=== PATIENT | female | born 1965 | race Caucasian/White ===

== ENCOUNTER 2020-05-13 17:56 | Emergency (ER) | payer MEDICAID ==
[~2020-05-13] VITALS: Ht 160 cm; Wt 98.9 kg
[~2020-05-13 17:56] MED LIST: ADV50250 IH; ALB0.5UD IH; ALBU8HFA PO; ASPI-1264 PO; CEPH-571 PO; DICL100G15 TOP; FAMO-1 PO; GUAI120015 PO; GUAI600T PO; HYDR-4383 PO; ONDA8TAB9 PO; Oxygen; SERT-153 PO; SIMV-42 PO; SPIIN INH; TIOT18CA7 IH
--- NOTE | 2020-05-13 19:40 | NUR ---
Pt reports calf discomfort , but when assessing her left lower extremity patient point to her left ankle and states that is where i am worried about a dvt . site is slightly swollen no rdeness . pt reports a hx of gout ,
--- NOTE | 2020-05-13 19:44 | NUR ---
x ray at bedside
[2020-05-13 20:10] LABS: BASOPHILS # (AUTO) 0.1 X10'3 (0-0.2); BASOPHILS % (AUTO) 0.9 % (0-1); EOSINOPHILS # (AUTO) 0.3 X10'3 (0-0.9); EOSINOPHILS % (AUTO) 3.3 % (0-6); HEMOGLOBIN 13.5 g/dl (12.0-16.0); LYMPHOCYTES # (AUTO) 2.6 X10'3 (1.1-4.8); MEAN CORPUSCULAR HEMOGLOBIN 30.8 PG (27.0-31.0); MEAN CORPUSCULAR HGB CONC 33.7 g/dL (33.0-36.5); MEAN CORPUSCULAR VOLUME 91.4 FL (78-98); MEAN PLATELET VOLUME 8.5 FL (7.4-10.4); MONOCYTES # (AUTO) 0.5 X10'3 (0-0.9); MONOCYTES % (AUTO) 6.3 % (2-12); NEUTROPHILS # (AUTO) 4.6 X10'3 (1.8-7.7); NEUTROPHILS % (AUTO) 57.5 % (42-75); PLATELET COUNT 221 X10'3 (140-440); RED BLOOD COUNT 4.38 X10'6 (4.20-5.60)
[2020-05-13 20:32] LABS: ALANINE AMINOTRANSFERASE 26 U/L (12-78); ALBUMIN 3.5 G/DL (3.4-5.0); ALBUMIN/GLOBULIN RATIO 0.9 (1.1-1.5); ALKALINE PHOSPHATASE 89 IU/L (46-116); ANION GAP 3 (8-16); ASPARTATE AMINO TRANSFERASE 13 U/L (10-37); BILIRUBIN,TOTAL 0.3 MG/DL (0.1-1.0); BLOOD UREA NITROGEN 17 MG/DL (7-18); BUN/CREATININE RATIO 23.6 (6.6-38.0); CALCIUM 10.2 MG/DL (8.5-10.1); CHLORIDE 105 MMOL/L (99-107); CREATININE 0.72 MG/DL (0.40-0.90); GLUCOSE 98 MG/DL (70-104); POTASSIUM 4.4 MMOL/L (3.5-5.1); SODIUM 138 MMOL/L (135-145); TOTAL CARBON DIOXIDE 30.1 MMOL/L (24-32); TOTAL PROTEIN 7.5 G/DL (6.4-8.2); eGFR 84 ML/MIN
[2020-05-13 21:42] VITALS: BP 133/80
--- NOTE | 2020-05-13 22:20 | NUR ---
VASC AT BEDSIDE ASSESSING PATIENTS LLE
== END 2020-05-13 23:12 | disposition home or self-care (01) ==
LOC: ER 17:56
DX: M54.16 Radiculopathy, lumbar region (principal); M79.662 Pain in left lower leg; E78.00 Pure hypercholesterolemia, unspecified; J44.9 Chronic obstructive pulmonary disease, unspecified; Z98.890 Other specified postprocedural states; Z88.0 Allergy status to penicillin; Z88.2 Allergy status to sulfonamides; Z88.1 Allergy status to other antibiotic agents; Z88.5 Allergy status to narcotic agent; Z79.82 Long term (current) use of aspirin; Z79.899 Other long term (current) drug therapy
CPT/HCPCS: 36415; 71045; 80053; 83880; 84484; 85025; 93005; 93971; 99285

== ENCOUNTER 2021-03-25 21:23 | Emergency (ER) | payer MEDICAID ==
[~2021-03-25] VITALS: Ht 160 cm; Wt 69.1 kg
[2021-03-25] MEDS ORDERED: [UNRECOGNIZED DRUG - OTHER] IV ONE ×3 (23:15)
[2021-03-25] MEDS ORDERED: famotidine/PF 10 mg/ml inj IV PRN (23:15)
[2021-03-25] MEDS ORDERED: NS IV ONE ×3 (23:15)
[2021-03-25] MEDS ORDERED: albuterol 2.5 MG/3 ML nebule NEB PRN (23:15)
[2021-03-25] MEDS ORDERED: acetaminophen 325mg tablet PO PRN (23:15)
[2021-03-25] MEDS ORDERED: hydrocortisone sod succ/PF 100mg/2ml inj. IV PRN (23:15)
[2021-03-25] MEDS ORDERED: epiNEPHrine 1 mg/ml inj IM PRN (23:15)
[2021-03-25] MEDS ORDERED: diphenhydrAMINE 50 mg/ml inj IV PRN (23:15)
[2021-03-26 00:50] VITALS: BP 145/75
== END 2021-03-26 00:51 | disposition home or self-care (01) ==
LOC: ER 21:24
DX: U07.1 COVID-19 (principal); R06.02 Shortness of breath; R05 Cough; R53.83 Other fatigue; E78.00 Pure hypercholesterolemia, unspecified; J44.9 Chronic obstructive pulmonary disease, unspecified; Z98.890 Other specified postprocedural states; Z88.2 Allergy status to sulfonamides; Z88.0 Allergy status to penicillin; Z88.1 Allergy status to other antibiotic agents; Z88.5 Allergy status to narcotic agent; Z79.82 Long term (current) use of aspirin; Z79.2 Long term (current) use of antibiotics; Z79.899 Other long term (current) drug therapy
CPT/HCPCS: 71045; 87635; 99284; C9803; M0243; Q0243

== ENCOUNTER 2021-05-18 16:27 | Emergency (ER) | payer MEDICAID ==
[~2021-05-18] VITALS: Ht 160 cm; Wt 64.5 kg
[2021-05-18 17:26] LABS: BASOPHILS # (AUTO) 0.1 X10'3 (0-0.2); BASOPHILS % (AUTO) 1.4 % (0-1); EOSINOPHILS # (AUTO) 0.3 X10'3 (0-0.9); EOSINOPHILS % (AUTO) 4.5 % (0-6); HEMATOCRIT 43.4 % (35.0-45.0); HEMOGLOBIN 14.6 g/dl (12.0-16.0); LYMPHOCYTES # (AUTO) 2.2 X10'3 (1.1-4.8); LYMPHOCYTES % (AUTO) 32.9 % (21-51); MEAN CORPUSCULAR HEMOGLOBIN 30.7 PG (27.0-31.0); MEAN CORPUSCULAR HGB CONC 33.6 g/dL (33.0-36.5); MEAN CORPUSCULAR VOLUME 91.5 FL (78-98); MEAN PLATELET VOLUME 8.5 FL (7.4-10.4); MONOCYTES # (AUTO) 0.5 X10'3 (0-0.9); MONOCYTES % (AUTO) 7.1 % (2-12); NEUTROPHILS # (AUTO) 3.6 X10'3 (1.8-7.7); NEUTROPHILS % (AUTO) 54.1 % (42-75); PLATELET COUNT 251 X10'3 (140-440); RED BLOOD COUNT 4.74 X10'6 (4.20-5.60); RED CELL DISTRIBUTION WIDTH 14.2 % (11.5-14.5); WHITE BLOOD COUNT 6.6 X10'3 (4.5-11.0)
[2021-05-18 17:37] LABS: ALANINE AMINOTRANSFERASE 6 U/L (12-78); ALBUMIN 3.4 G/DL (3.4-5.0); ALBUMIN/GLOBULIN RATIO 0.8 (1.1-1.5); ALKALINE PHOSPHATASE 98 IU/L (46-116); ANION GAP 9 (8-16); ASPARTATE AMINO TRANSFERASE 8 U/L (10-37); BILIRUBIN,TOTAL 0.3 MG/DL (0.1-1.0); BLOOD UREA NITROGEN 15 MG/DL (7-18); BUN/CREATININE RATIO 17.4 (6.6-38.0); CALCIUM 10.4 MG/DL (8.5-10.1); CHLORIDE 108 MMOL/L (99-107); CREATININE 0.86 MG/DL (0.40-0.90); GLUCOSE 95 MG/DL (70-104); POTASSIUM 4.1 MMOL/L (3.5-5.1); SODIUM 144 MMOL/L (135-145); TOTAL CARBON DIOXIDE 27.3 MMOL/L (24-32); TOTAL PROTEIN 7.7 G/DL (6.4-8.2); eGFR 68 ML/MIN
[2021-05-18] MEDS ORDERED: DOXY100C43 PO (21:09)
[2021-05-18] MEDS ORDERED: ALBU18HF2 INH (21:09)
[2021-05-18] MEDS ORDERED: PRED20TA PO (21:09)
[2021-05-18 21:27] VITALS: BP 115/86
== END 2021-05-18 21:30 | disposition home or self-care (01) ==
LOC: ER 16:28
DX: J41.0 Simple chronic bronchitis (principal); R07.89 Other chest pain; R06.02 Shortness of breath; R07.81 Pleurodynia; E78.00 Pure hypercholesterolemia, unspecified; F17.200 Nicotine dependence, unspecified, uncomplicated; Z88.2 Allergy status to sulfonamides; Z88.1 Allergy status to other antibiotic agents; Z88.5 Allergy status to narcotic agent; Z79.82 Long term (current) use of aspirin; Z79.2 Long term (current) use of antibiotics; Z79.899 Other long term (current) drug therapy
CPT/HCPCS: 36415; 71045; 80053; 85025; 99284; 99285

== ENCOUNTER 2021-07-07 18:21 | Emergency (ER) | payer MEDICAID ==
[~2021-07-07] VITALS: Ht 160 cm; Wt 64.5 kg
[~2021-07-07 18:21] MED LIST changes: +ALBU18HF2 INH
[2021-07-07 19:05] VITALS: BP 165/81
== END 2021-07-07 23:38 | disposition left against medical advice (07) ==
LOC: ER 18:22
DX: S61.011A Laceration without foreign body of right thumb without damage to nail, initial encounter (principal); Z53.21 Procedure and treatment not carried out due to patient leaving prior to being seen by health care provider; X58.XXXA Exposure to other specified factors, initial encounter; Y93.9 Activity, unspecified; Y92.9 Unspecified place or not applicable; Y99.9 Unspecified external cause status

== ENCOUNTER 2021-07-17 19:20 | Emergency (ER) | payer MEDICAID ==
[~2021-07-17] VITALS: Ht 160 cm; Wt 64.5 kg
[2021-07-17] MEDS ORDERED: acetaminophen 325mg tablet PO ONE (21:40)
[2021-07-17 22:25] VITALS: BP 116/80
== END 2021-07-17 22:27 | disposition home or self-care (01) ==
LOC: ER 19:21
DX: S80.212A Abrasion, left knee, initial encounter (principal); M25.562 Pain in left knee; E78.00 Pure hypercholesterolemia, unspecified; J44.9 Chronic obstructive pulmonary disease, unspecified; Z98.890 Other specified postprocedural states; Z88.0 Allergy status to penicillin; Z88.2 Allergy status to sulfonamides; Z88.1 Allergy status to other antibiotic agents; Z88.5 Allergy status to narcotic agent; Z79.82 Long term (current) use of aspirin; Z79.2 Long term (current) use of antibiotics; Z79.899 Other long term (current) drug therapy; W19.XXXA Unspecified fall, initial encounter; Y93.89 Activity, other specified; Y92.89 Other specified places as the place of occurrence of the external cause; Y99.8 Other external cause status
CPT/HCPCS: 29505; 73564; 99283

== ENCOUNTER 2022-02-17 02:11 | Emergency (ER) | payer MEDICAID ==
[~2022-02-17] VITALS: Ht 160 cm; Wt 69.0 kg
[2022-02-17 02:29] VITALS: BP 133/68
== END 2022-02-17 05:55 | disposition left against medical advice (07) ==
LOC: ER 02:12
DX: R10.9 Unspecified abdominal pain (principal); Z53.21 Procedure and treatment not carried out due to patient leaving prior to being seen by health care provider

== ENCOUNTER 2022-07-13 13:49 | Emergency (ER) | payer MEDICAID ==
[~2022-07-13] VITALS: Ht 160 cm; Wt 66.4 kg
[2022-07-13 14:40] VITALS: BP 125/80
[2022-07-13] MEDS ORDERED: ONDA4TAB12 PO (17:13)
[2022-07-13] MEDS ORDERED: HYDR-3965 PO (17:13)
== END 2022-07-13 17:33 | disposition home or self-care (01) ==
LOC: ER 13:49
DX: M25.572 Pain in left ankle and joints of left foot (principal); E78.00 Pure hypercholesterolemia, unspecified; J44.9 Chronic obstructive pulmonary disease, unspecified; Z98.890 Other specified postprocedural states; Z88.0 Allergy status to penicillin; Z88.2 Allergy status to sulfonamides; Z88.5 Allergy status to narcotic agent; Z88.8 Allergy status to other drugs, medicaments and biological substances; Z79.82 Long term (current) use of aspirin; Z79.2 Long term (current) use of antibiotics; Z79.899 Other long term (current) drug therapy
CPT/HCPCS: 73630; 99283; L4360

== ENCOUNTER 2022-08-22 07:18 | Day surgery (SDC) | payer MEDICAID ==
[2022-08-16 11:31] LABS: BASOPHILS # (AUTO) 0.1 X10'3 (0-0.2); BASOPHILS % (AUTO) 1.1 % (0-1); EOSINOPHILS # (AUTO) 0.2 X10'3 (0-0.9); EOSINOPHILS % (AUTO) 2.9 % (0-6); LYMPHOCYTES # (AUTO) 2.1 X10'3 (1.1-4.8); MEAN CORPUSCULAR HEMOGLOBIN 30.6 PG (27.0-31.0); MEAN CORPUSCULAR HGB CONC 33.6 g/dL (33.0-36.5); MEAN CORPUSCULAR VOLUME 91.1 FL (78-98); MEAN PLATELET VOLUME 8.1 FL (7.4-10.4); MONOCYTES # (AUTO) 0.4 X10'3 (0-0.9); MONOCYTES % (AUTO) 5.4 % (2-12); NEUTROPHILS # (AUTO) 3.8 X10'3 (1.8-7.7); NEUTROPHILS % (AUTO) 58.6 % (42-75); PRE OP HEMATOCRIT 43.3 % (35.0-45.0); PRE OP HEMOGLOBIN 14.5 g/dL (12.0-16.0); PRE OP PLATELET COUNT 242 X10'3 (140-440); RED BLOOD COUNT 4.75 X10'6 (4.20-5.60); RED CELL DISTRIBUTION WIDTH 13.7 % (11.5-14.5)
[2022-08-16 11:45] LABS: ALBUMIN 3.5 G/DL (3.4-5.0); ALBUMIN/GLOBULIN RATIO 0.9 (1.1-1.5); ALKALINE PHOSPHATASE 109 IU/L (46-116); BLOOD UREA NITROGEN 14 MG/DL (7-18); BUN/CREATININE RATIO 16.3 (6.6-38.0); CALCIUM 9.9 MG/DL (8.5-10.1); CHLORIDE 105 MMOL/L (99-107); CREATININE 0.86 MG/DL (0.40-0.90); PRE OP ALT 21 U/L (30-65); PRE OP ANION GAP 3 (8-16); PRE OP AST 19 U/L (10-37); PRE OP BILIRUB, TOTAL 0.4 MG/DL (0.0-1.0); PRE OP GLUCOSE 107 MG/DL (70-104); PRE OP POTASSIUM 4.8 MMOL/L (3.4-5.1); PRE OP SODIUM 138 MMOL/L (135-145); TOTAL CARBON DIOXIDE 29.9 MMOL/L (24-32); TOTAL PROTEIN 7.5 G/DL (6.4-8.2); eGFR 68 ML/MIN
[2022-08-22] VITALS (11 sets, daily range): BP systolic 82–110; BP diastolic 51–97
[~2022-08-22] VITALS: Ht 160 cm; Wt 66.5 kg
[~2022-08-22 07:18] MED LIST changes: -ADV50250 IH; -ALBU8HFA PO; -ASPI-1264 PO; +BUPIVAcaine/PF 5 mg/ml 10ml ONE; +BUSP15TA7 PO; -CEPH-571 PO; -DICL100G15 TOP; -FAMO-1 PO; -GUAI120015 PO; -GUAI600T PO; -HYDR-4383 PO; +OMEP20CA16 PO; -ONDA8TAB9 PO; -Oxygen; +PRAV20TA4 PO; -SERT-153 PO; -SIMV-42 PO; -SPIIN INH; -TIOT18CA7 IH; +clindamycin-Cleocin 900mg/D5W 50 ML IV ONE; +famotidine 20mg tablet PO ONE; +ringers solution, lacted 1,000 ML IV SCH
[2022-08-22] MEDS ORDERED: morphine 2 MG/ML inj. syringe IV PRN (07:50)
[2022-08-22] MEDS ORDERED: ondansetron/PF 4mg/2ml inj IV PRN (07:50)
[2022-08-22] MEDS ORDERED: labetalol 5mg/ml 20ml inj. IV PRN (07:50)
[2022-08-22] MEDS ORDERED: ringers solution, lacted 1,000 ML IV SCH (07:50)
[2022-08-22] MEDS ORDERED: meperidine/PF 25mg/ml syringe IV PRN (07:50)
[2022-08-22] MEDS ORDERED: fentaNYL/PF 50MCG/1 ML 2ML syringe ONE (09:29)
[2022-08-22] MEDS ORDERED: midazolam 1 mg/ML 2ml injection ONE (09:29)
[2022-08-22] MEDS ORDERED: LIDOcaine 0.5% (5mg/ml) 50ml vial ONE (09:30)
--- NOTE | 2022-08-22 09:52 | NUR ---
Received from OR via [facility], accompanied by Anesthesiologist DR MENENDEZ and report given by Anesthesiolgist. PT PRESNTS WITH PIV 2OG RIGHT AC, DRESSING ON LEFT THUMB WRIST CDI, VSS. Addendum: 08/22/22 at 1004 by Justine Holcomb RN, RN Amended: Links added.
--- NOTE | 2022-08-22 11:02 | NUR ---
ABLE TO SAFELY AMBULATE AND TRANSFER SELF. IV TAKEN OUT WITHOUT ANY COMPLICATIONS. ALL DISCHARGE INSTRUCTIONS COVERED WITH PATIENT AND ALL QUESTIONS ANSWERED. PATIENT TAKEN OUT VIA WHEELCHAIR TO PERSONAL VEHICLE WHERE FAMILY/FRIEND DROVE PATIENT HOME. Addendum: 08/22/22 at 1112 by Justine Holcomb RN, RN Amended: Links added.
== END 2022-08-22 11:02 | disposition home or self-care (01) ==
LOC: PAS 07:18
PROVIDERS: ATTEND Orthopaedic Surgery Hand Surgery
DX: M65.312 Trigger thumb, left thumb (principal); J44.9 Chronic obstructive pulmonary disease, unspecified; F17.210 Nicotine dependence, cigarettes, uncomplicated; F41.9 Anxiety disorder, unspecified; F32.9 Major depressive disorder, single episode, unspecified; K21.9 Gastro-esophageal reflux disease without esophagitis; E78.00 Pure hypercholesterolemia, unspecified; Z87.442 Personal history of urinary calculi; Z88.0 Allergy status to penicillin; Z88.2 Allergy status to sulfonamides; Z88.5 Allergy status to narcotic agent; Z88.1 Allergy status to other antibiotic agents; Z98.890 Other specified postprocedural states; Z79.899 Other long term (current) drug therapy; Z82.49 Family history of ischemic heart disease and other diseases of the circulatory system
CPT/HCPCS: 26055; 36415; 80053; 82948; 85025; 93005; J2250; J3010; J3490; J7030; J7120; Z7506; Z7512; A4215; A4615

== ENCOUNTER 2023-04-07 13:20 | Emergency (ER) | payer MEDICAID ==
[~2023-04-07] VITALS: Ht 170.2 cm; Wt 80.0 kg
[~2023-04-07 13:20] MED LIST changes: -BUPIVAcaine/PF 5 mg/ml 10ml ONE; -clindamycin-Cleocin 900mg/D5W 50 ML IV ONE; -famotidine 20mg tablet PO ONE; -ringers solution, lacted 1,000 ML IV SCH
[2023-04-07 13:24] VITALS: BP 100/74; PULSE 89; RESP 18; TEMP 98; O2SAT 95
[2023-04-07] MEDS ORDERED: normal saline 1000ML IV soln IVB ONE (16:00)
[2023-04-07] MEDS ORDERED: HYDR-3973 PO (16:39)
== END 2023-04-07 17:30 | disposition home or self-care (01) ==
LOC: ER 13:20
DX: S32.009A Unspecified fracture of unspecified lumbar vertebra, initial encounter for closed fracture (principal); E78.00 Pure hypercholesterolemia, unspecified; J44.9 Chronic obstructive pulmonary disease, unspecified; Z88.0 Allergy status to penicillin; Z88.2 Allergy status to sulfonamides; Z88.1 Allergy status to other antibiotic agents; Z88.5 Allergy status to narcotic agent; Z91.041 Radiographic dye allergy status; Z79.899 Other long term (current) drug therapy; V89.2XXA Person injured in unspecified motor-vehicle accident, traffic, initial encounter; Y93.89 Activity, other specified; Y92.89 Other specified places as the place of occurrence of the external cause; Y99.8 Other external cause status
CPT/HCPCS: 72100; 96360; 99284; J7030

== ENCOUNTER 2023-06-02 11:43 | Emergency (ER) | payer MEDICAID ==
[~2023-06-02] VITALS: Ht 160 cm; Wt 66.0 kg
[2023-06-02] MEDS ORDERED: normal saline 1000ML IV soln IVB ONE (12:20)
[2023-06-02] MEDS ORDERED: ondansetron/PF 4mg/2ml inj IV ONE (12:20)
[2023-06-02 12:24] LABS: BILIRUBIN,URINE NEGATIVE (Neg); COLOR,URINE YELLOW (Yellow); GLUCOSE, URINE NEGATIVE (Neg); KETONES,URINE NEGATIVE (Neg); LEUKOCYTE ESTERASE ,URINE SMALL (Neg); NITRITES, URINE POSITIVE (Neg); OCCULT BLOOD,URINE TRACE-INTACT (Neg); PROTEIN,URINE NEGATIVE (Neg)
[2023-06-02 12:31] LABS: URINE HCG NEGATIVE (NEG)
[2023-06-02 12:46] LABS: CLARITY,URINE CLOUDY (Clear); UA COLLECTION TYPE CLN CATCH MIDSTREAM
[2023-06-02 12:54] LABS: BACTERIA,URINE 4+ /HPF (Neg); MUCUS STRANDS FEW /LPF (Neg); SQUAMOUS EPITHELIAL CELL,UR FEW /LPF (FEW)
[2023-06-02 12:56] LABS: CAL OXALATE CRYSTALS 1+ /HPF (NEGATIVE)
[2023-06-02 13:10] LABS: BASOPHILS # (AUTO) 0.1 X10'3 (0-0.2); BASOPHILS % (AUTO) 0.9 % (0-1); EOSINOPHILS # (AUTO) 0.1 X10'3 (0-0.9); EOSINOPHILS % (AUTO) 2.1 % (0-6); HEMATOCRIT 44.4 % (35.0-45.0); HEMOGLOBIN 14.5 g/dl (12.0-16.0); LYMPHOCYTES # (AUTO) 2.3 X10'3 (1.1-4.8); LYMPHOCYTES % (AUTO) 39.6 % (21-51); MEAN CORPUSCULAR HEMOGLOBIN 29.5 PG (27.0-31.0); MEAN CORPUSCULAR HGB CONC 32.7 g/dL (33.0-36.5); MEAN CORPUSCULAR VOLUME 90.2 FL (78-98); MEAN PLATELET VOLUME 8.6 FL (7.4-10.4); MONOCYTES # (AUTO) 0.3 X10'3 (0-0.9); MONOCYTES % (AUTO) 5.8 % (2-12); NEUTROPHILS % (AUTO) 51.6 % (42-75); PLATELET COUNT 266 X10'3 (140-440); RED BLOOD COUNT 4.92 X10'6 (4.20-5.60); RED CELL DISTRIBUTION WIDTH 15.1 % (11.5-14.5); WHITE BLOOD COUNT 5.7 X10'3 (4.5-11.0)
[2023-06-02] MEDS ORDERED: ONDA4TAB12 PO (13:13)
[2023-06-02] MEDS ORDERED: CEPH-585 PO ×2 (13:13)
[2023-06-02] MEDS ORDERED: levoFLOXACIN 250mg tablet PO ONE (13:15)
[2023-06-02] MEDS ORDERED: LEVO-65 PO (13:20)
[2023-06-02 13:24] LABS: ALANINE AMINOTRANSFERASE 26 U/L (12-78); ALBUMIN 3.6 G/DL (3.4-5.0); ALBUMIN/GLOBULIN RATIO 0.9 (1.1-1.5); ALKALINE PHOSPHATASE 127 IU/L (46-116); ANION GAP 7 (8-16); ASPARTATE AMINO TRANSFERASE 16 U/L (10-37); BILIRUBIN,TOTAL 0.3 MG/DL (0.1-1.0); BLOOD UREA NITROGEN 14 MG/DL (7-18); CALCIUM 10.4 MG/DL (8.5-10.1); CHLORIDE 103 MMOL/L (99-107); GLUCOSE 99 MG/DL (70-104); LIPASE 40 U/L (16-77); POTASSIUM 4.3 MMOL/L (3.5-5.1); SODIUM 138 MMOL/L (135-145); TOTAL CARBON DIOXIDE 28.5 MMOL/L (24-32); TOTAL PROTEIN 7.4 G/DL (6.4-8.2); eCRCL 72 ML/MIN; eGFR 86 ML/MIN
[2023-06-02 13:30] VITALS: BP 124/84; PULSE 62; RESP 18; TEMP 97.6; O2SAT 97
== END 2023-06-02 13:32 | disposition home or self-care (01) ==
LOC: ER 11:44
DX: R11.2 Nausea with vomiting, unspecified (principal); N39.0 Urinary tract infection, site not specified; E78.00 Pure hypercholesterolemia, unspecified; J44.9 Chronic obstructive pulmonary disease, unspecified; G89.29 Other chronic pain; M81.0 Age-related osteoporosis without current pathological fracture; F17.210 Nicotine dependence, cigarettes, uncomplicated; K21.9 Gastro-esophageal reflux disease without esophagitis; Z88.0 Allergy status to penicillin; Z79.1 Long term (current) use of non-steroidal anti-inflammatories (NSAID); Z88.2 Allergy status to sulfonamides; Z88.8 Allergy status to other drugs, medicaments and biological substances; Z79.899 Other long term (current) drug therapy; Z79.2 Long term (current) use of antibiotics
CPT/HCPCS: 36415; 80053; 81001; 81025; 83690; 85025; 87077; 87088; 87186; 96361; 96374; 99283; J2405; J7030

== ENCOUNTER 2023-10-27 08:09 | Day surgery (SDC) | payer MEDICAID ==
[2023-10-23 11:50] LABS: BASOPHILS # (AUTO) 0.1 X10'3 (0-0.2); BASOPHILS % (AUTO) 1.2 % (0-1); EOSINOPHILS # (AUTO) 0.2 X10'3 (0-0.9); EOSINOPHILS % (AUTO) 2.6 % (0-6); LYMPHOCYTES # (AUTO) 2.3 X10'3 (1.1-4.8); LYMPHOCYTES % (AUTO) 31.5 % (21-51); MEAN CORPUSCULAR HEMOGLOBIN 30.7 PG (27.0-31.0); MEAN CORPUSCULAR HGB CONC 33.3 g/dL (33.0-36.5); MEAN CORPUSCULAR VOLUME 92.3 FL (78-98); MEAN PLATELET VOLUME 8.3 FL (7.4-10.4); MONOCYTES # (AUTO) 0.5 X10'3 (0-0.9); MONOCYTES % (AUTO) 6.4 % (2-12); NEUTROPHILS # (AUTO) 4.2 X10'3 (1.8-7.7); NEUTROPHILS % (AUTO) 58.3 % (42-75); PRE OP HEMATOCRIT 40.7 % (35.0-45.0); PRE OP HEMOGLOBIN 13.5 g/dL (12.0-16.0); PRE OP PLATELET COUNT 260 X10'3 (140-440); PRE OP WHITE BLOOD COUNT 7.3 10'3 (4.8-10.8); RED BLOOD COUNT 4.41 X10'6 (4.20-5.60)
[2023-10-23 12:14] LABS: ALBUMIN 3.4 G/DL (3.4-5.0); ALBUMIN/GLOBULIN RATIO 0.8 (1.1-1.5); ALKALINE PHOSPHATASE 91 IU/L (46-116); BLOOD UREA NITROGEN 19 MG/DL (7-18); BUN/CREATININE RATIO 19.2 (10.0-20.0); CALCIUM 9.4 MG/DL (8.5-10.1); CHLORIDE 106 MMOL/L (99-107); CREATININE 0.99 MG/DL (0.40-0.90); PRE OP ALT 23 U/L (30-65); PRE OP ANION GAP 7 (8-16); PRE OP AST 16 U/L (10-37); PRE OP BILIRUB, TOTAL 0.4 MG/DL (0.0-1.0); PRE OP GLUCOSE 116 MG/DL (70-104); PRE OP POTASSIUM 4.5 MMOL/L (3.4-5.1); PRE OP SODIUM 141 MMOL/L (135-145); TOTAL CARBON DIOXIDE 27.7 MMOL/L (24-32); TOTAL PROTEIN 7.7 G/DL (6.4-8.2); eGFR 58 ML/MIN
[~2023-10-27] VITALS: Ht 160 cm; Wt 72.5 kg
[2023-10-27] VITALS (8 sets, daily range): BP systolic 101–139; BP diastolic 69–79; PULSE 69–76; RESP 13–19; TEMP 98.3; O2SAT 94–100
[~2023-10-27 08:09] MED LIST changes: +ADV50100 INH; -BUSP15TA7 PO; +CALC-1260 PO; +CELE-193 PO; +CHOL20002 PO; +HYDR-3973 PO; +PROM25TA14 PO; +albuterol 2.5 MG/3 ML nebule NEB PRN
[2023-10-27] MEDS: famotidine 20mg tablet PO ONE (08:49)
[2023-10-27] MEDS: ringers solution, lacted 1,000 ML IV SCH (08:50)
[2023-10-27] MEDS ORDERED: HYDROcodone/acetaminophen 10/325mg tab PO ONE (09:30)
[2023-10-27] MEDS ORDERED: BUPIVAcaine 0.5% inj/PF 60 ML ONE (09:36)
[2023-10-27] MEDS ORDERED: sevoflurane 250ml liquid IH ONE (09:40)
[2023-10-27] MEDS: LIDOcaine 1% 30ml preserv. free vial ONE (10:07)
[2023-10-27] MEDS: LIDOcaine 1% w/EPI 1:100,000 inj. MDV 50 ML VIAL ONE (10:07)
[2023-10-27] MEDS: morphine 10mg/ml inj. ONE (10:08)
[2023-10-27] MEDS ORDERED: meperidine/PF 25mg/ml syringe IV PRN ×2 (10:10)
[2023-10-27] MEDS ORDERED: proCHLORperazine 10 MG/2 ml inj IV PRN (10:10)
[2023-10-27] MEDS ORDERED: morphine 2 MG/ML inj. syringe IV PRN (10:10)
[2023-10-27] MEDS ORDERED: ondansetron/PF 4mg/2ml inj IV PRN (10:10)
[2023-10-27] MEDS ORDERED: ringers solution, lacted 1,000 ML IV SCH (10:10)
[2023-10-27] MEDS ORDERED: ceFAZolin 1000mg inj ONE ×2 (10:20)
[2023-10-27] MEDS ORDERED: ondansetron/PF 4mg/2ml inj ONE (10:20)
[2023-10-27] MEDS ORDERED: propofol inj 20 ML IV ONE (10:20)
[2023-10-27] MEDS ORDERED: LIDOcaine 1%/PF 5ML 10 MG/ML VIAL ONE (10:20)
== END 2023-10-27 11:14 | disposition home or self-care (01) ==
LOC: PAS 08:09
PROVIDERS: ATTEND Orthopaedic Surgery
DX: S83.231A Complex tear of medial meniscus, current injury, right knee, initial encounter (principal); J44.9 Chronic obstructive pulmonary disease, unspecified; F41.9 Anxiety disorder, unspecified; F32.A Depression, unspecified; K21.9 Gastro-esophageal reflux disease without esophagitis; E78.5 Hyperlipidemia, unspecified; G47.30 Sleep apnea, unspecified; Z87.442 Personal history of urinary calculi; Z79.82 Long term (current) use of aspirin; Z79.891 Long term (current) use of opiate analgesic; Z79.899 Other long term (current) drug therapy; Z90.89 Acquired absence of other organs; Z98.890 Other specified postprocedural states; Z88.0 Allergy status to penicillin; Z88.1 Allergy status to other antibiotic agents; Z88.2 Allergy status to sulfonamides; Z88.5 Allergy status to narcotic agent; Z82.49 Family history of ischemic heart disease and other diseases of the circulatory system; X58.XXXA Exposure to other specified factors, initial encounter; Y93.89 Activity, other specified; Y92.89 Other specified places as the place of occurrence of the external cause; Y99.8 Other external cause status
CPT/HCPCS: 29881; 36415; 71046; 80053; 82948; 85025; J0665; J0690; J2274; J2405; J2704; J3490; J7120; S0020; Z7506; Z7512; A4215; A4618; A6253; A6449; A7000

== ENCOUNTER 2023-12-31 16:47 | Emergency (ER) | payer MEDICAID ==
[~2023-12-31] VITALS: Ht 160 cm; Wt 73.9 kg
[~2023-12-31 16:47] MED LIST changes: -albuterol 2.5 MG/3 ML nebule NEB PRN
[2023-12-31 16:56] VITALS: BP 103/70; PULSE 83; TEMP 98.4; O2SAT 95
[2023-12-31] MEDS ORDERED: LIDO700A32 TOP (17:33)
[2023-12-31] MEDS ORDERED: PRED10TA23 PO (17:33)
[2023-12-31] MEDS ORDERED: CYCL-1 PO (17:33)
[2023-12-31] MEDS: dexamethasone sod phosphate 10mg/ml inj IM STA (19:18)
[2023-12-31 19:19] VITALS: RESP 16
[2023-12-31] MEDS: ketorolac tromethamine 15mg/ml inj. IM ONE (19:19)
[2024-01-01] MEDS ORDERED: LIDOcaine 5% patch TP SCH (08:00)
== END 2023-12-31 19:29 | disposition home or self-care (01) ==
LOC: ER 16:48
DX: S39.012A Strain of muscle, fascia and tendon of lower back, initial encounter (principal); E78.00 Pure hypercholesterolemia, unspecified; J44.9 Chronic obstructive pulmonary disease, unspecified; K21.9 Gastro-esophageal reflux disease without esophagitis; Z88.0 Allergy status to penicillin; Z88.2 Allergy status to sulfonamides; Z88.1 Allergy status to other antibiotic agents; Z88.5 Allergy status to narcotic agent; Z88.8 Allergy status to other drugs, medicaments and biological substances; Z79.899 Other long term (current) drug therapy; Z79.2 Long term (current) use of antibiotics; X58.XXXA Exposure to other specified factors, initial encounter; Y93.89 Activity, other specified; Y92.89 Other specified places as the place of occurrence of the external cause; Y99.8 Other external cause status
CPT/HCPCS: 72040; 72100; 96372; 99284; J1100; J1885

== ENCOUNTER 2024-02-12 19:31 | Inpatient (IN) | payer MEDICAID ==
[~2024-02-12] VITALS: Ht 160 cm; Wt 69.1 kg
[~2024-02-12 19:31] MED LIST changes: +CYCL-1 PO; +LIDO700A32 TOP
[2024-02-12 20:09] LABS: BASOPHILS # (AUTO) 0.1 X10'3 (0-0.2); BASOPHILS % (AUTO) 0.9 % (0-1); EOSINOPHILS # (AUTO) 0.2 X10'3 (0-0.9); HEMATOCRIT 43.8 % (35.0-45.0); HEMOGLOBIN 14.3 g/dl (12.0-16.0); LYMPHOCYTES # (AUTO) 1.9 X10'3 (1.1-4.8); LYMPHOCYTES % (AUTO) 21.1 % (21-51); MEAN CORPUSCULAR HEMOGLOBIN 29.3 PG (27.0-31.0); MEAN CORPUSCULAR HGB CONC 32.6 g/dL (33.0-36.5); MEAN CORPUSCULAR VOLUME 89.7 FL (78-98); MEAN PLATELET VOLUME 8.5 FL (7.4-10.4); MONOCYTES # (AUTO) 0.5 X10'3 (0-0.9); MONOCYTES % (AUTO) 5.9 % (2-12); NEUTROPHILS # (AUTO) 6.4 X10'3 (1.8-7.7); NEUTROPHILS % (AUTO) 70.1 % (42-75); PLATELET COUNT 282 X10'3 (140-440); RED BLOOD COUNT 4.88 X10'6 (4.20-5.60); RED CELL DISTRIBUTION WIDTH 14.6 % (11.5-14.5); WHITE BLOOD COUNT 9.2 X10'3 (4.5-11.0)
[2024-02-12] MEDS: ondansetron/PF 4mg/2ml inj IV ONE (20:13)
[2024-02-12] MEDS: morphine 4 MG/ML inj SYRINge IV ONE ×2 (20:13→21:05)
[2024-02-12] MEDS: normal saline 1000ML IV soln IVB ONE (20:13)
[2024-02-12 20:17] LABS: ALANINE AMINOTRANSFERASE 24 U/L (12-78); ALBUMIN 3.5 G/DL (3.4-5.0); ALBUMIN/GLOBULIN RATIO 0.8 (1.1-1.5); ALKALINE PHOSPHATASE 131 IU/L (46-116); ANION GAP 5 (8-16); ASPARTATE AMINO TRANSFERASE 11 U/L (10-37); BILIRUBIN,TOTAL 0.4 MG/DL (0.1-1.0); BLOOD UREA NITROGEN 15 MG/DL (7-18); CALCIUM 10.2 MG/DL (8.5-10.1); CHLORIDE 102 MMOL/L (99-107); CREATININE 0.94 MG/DL (0.40-0.90); GLUCOSE 123 MG/DL (70-104); LIPASE 34 U/L (16-77); POTASSIUM 4.8 MMOL/L (3.5-5.1); SODIUM 136 MMOL/L (135-145); TOTAL CARBON DIOXIDE 29.2 MMOL/L (24-32); TOTAL PROTEIN 8.1 G/DL (6.4-8.2); eCRCL 53 ML/MIN; eGFR 61 ML/MIN
[2024-02-12 20:20] LABS: BILIRUBIN,URINE NEGATIVE (Neg); CLARITY,URINE CLOUDY (Clear); COLOR,URINE YELLOW (Yellow); GLUCOSE, URINE NEGATIVE (Neg); KETONES,URINE NEGATIVE (Neg); LEUKOCYTE ESTERASE ,URINE TRACE (Neg); NITRITES, URINE POSITIVE (Neg); OCCULT BLOOD,URINE LARGE (Neg); PROTEIN,URINE NEGATIVE (Neg)
[2024-02-12 20:22] LABS: UA COLLECTION TYPE CLN CATCH MIDSTREAM; URINE HCG NEGATIVE (NEG)
[2024-02-12 20:26] LABS: BACTERIA,URINE 4+ /HPF (Neg)
[2024-02-12 20:27] LABS: AMORPHOUS URATES 2+; MUCUS STRANDS FEW /LPF (Neg); RBC,URINE 20-50 /HPF (0-2); RENAL CELLS, URINE FEW /HPF; SQUAMOUS EPITHELIAL CELL,UR MODERATE /LPF (FEW); TRANSITIONAL EPI CELLS,URINE FEW /HPF
[2024-02-12] MEDS: CefTRIAXone/D5W-Rocephin 1gm 50 ML IV ONE (20:46)
[2024-02-12] MEDS ORDERED: temazepam 15mg capsule PO PRN (21:00)
[2024-02-12] MEDS: ketorolac trometh. 30mg/ml inj. IV ONE (21:35)
[2024-02-12] MEDS ORDERED: ALBU8HFA INH (21:36)
[2024-02-12] MEDS ORDERED: LIDO700A32 TOP (21:38)
[2024-02-12] MEDS ORDERED: CYCL-1 PO (21:38)
[2024-02-12] MEDS ORDERED: magnesium Cl slow-release 64mg tablet PO PRN (21:40)
[2024-02-12] MEDS ORDERED: potassium Cl 20 mEq SR tablet PO PRN ×2 (21:40)
[2024-02-12] MEDS ORDERED: acetaminophen 325mg tablet PO PRN (21:40)
[2024-02-12] MEDS ORDERED: potassium Cl 40MEQ/1/2NS 520ml 520 ML IV PRN (21:40)
[2024-02-12] MEDS ORDERED: magnesium sulf-water 4G/100mL 100 ML IV PRN (21:40)
[2024-02-12] MEDS ORDERED: magnesium sulf-water 2g/50mL 50 ML IV PRN (21:40)
[2024-02-12] MEDS ORDERED: mag hydrox/Alum hydrox/simeth 30ml oral suspension PO PRN (21:40)
[2024-02-12] MEDS ORDERED: HYDROmorphone/PF 0.2 MG/ML SYRINGE IV PRN (21:40)
[2024-02-12] MEDS ORDERED: magnesium hydroxide 30ml (MOM) UD suspension PO PRN (21:40)
[2024-02-12] MEDS ORDERED: non-formulary drug (albuterol inhaler (Pro-Air Inhaler) 2 PUFFS) INH PRN (22:00)
[2024-02-12] MEDS: tamsulosin 0.4mg capsule PO SCH (22:02)
[2024-02-12] MEDS: normal saline 1000ml 1,000 ML IV SCH (22:02)
[2024-02-12 22:45] VITALS: RESP 20; O2SAT 94
[2024-02-12 22:50] VITALS: BP 105/60; PULSE 70; RESP 20; O2SAT 94
[2024-02-13] VITALS (29 sets, daily range): BP systolic 77–158; BP diastolic 40–117; PULSE 54–112; RESP 15–26; TEMP 97.9–102; O2SAT 91–99
[2024-02-13] MEDS: ondansetron/PF 4mg/2ml inj IV PRN (00:26)
[2024-02-13 04:03] LABS: BASOPHILS # (AUTO) 0.1 X10'3 (0-0.2); BASOPHILS % (AUTO) 0.8 % (0-1); EOSINOPHILS # (AUTO) 0.1 X10'3 (0-0.9); EOSINOPHILS % (AUTO) 0.6 % (0-6); HEMATOCRIT 39.6 % (35.0-45.0); HEMOGLOBIN 12.8 g/dl (12.0-16.0); LYMPHOCYTES # (AUTO) 0.8 X10'3 (1.1-4.8); LYMPHOCYTES % (AUTO) 7.3 % (21-51); MEAN CORPUSCULAR HEMOGLOBIN 29.2 PG (27.0-31.0); MEAN CORPUSCULAR HGB CONC 32.4 g/dL (33.0-36.5); MEAN PLATELET VOLUME 8.3 FL (7.4-10.4); MONOCYTES # (AUTO) 0.6 X10'3 (0-0.9); MONOCYTES % (AUTO) 5.6 % (2-12); NEUTROPHILS # (AUTO) 9.6 X10'3 (1.8-7.7); NEUTROPHILS % (AUTO) 85.7 % (42-75); PLATELET COUNT 218 X10'3 (140-440); RED CELL DISTRIBUTION WIDTH 14.8 % (11.5-14.5); WHITE BLOOD COUNT 11.2 X10'3 (4.5-11.0)
[2024-02-13 04:16] LABS: ALANINE AMINOTRANSFERASE 17 U/L (12-78); ALBUMIN 2.7 G/DL (3.4-5.0); ALBUMIN/GLOBULIN RATIO 0.7 (1.1-1.5); ALKALINE PHOSPHATASE 106 IU/L (46-116); ANION GAP 7 (8-16); ASPARTATE AMINO TRANSFERASE 13 U/L (10-37); BILIRUBIN,TOTAL 0.4 MG/DL (0.1-1.0); BLOOD UREA NITROGEN 17 MG/DL (7-18); BUN/CREATININE RATIO 16.2 (10.0-20.0); CALCIUM 8.9 MG/DL (8.5-10.1); CHLORIDE 105 MMOL/L (99-107); CREATININE 1.05 MG/DL (0.40-0.90); GLUCOSE 116 MG/DL (70-104); MAGNESIUM 1.8 MG/DL (1.5-2.4); POTASSIUM 4.8 MMOL/L (3.5-5.1); SODIUM 138 MMOL/L (135-145); TOTAL CARBON DIOXIDE 26.3 MMOL/L (24-32); TOTAL PROTEIN 6.6 G/DL (6.4-8.2); eCRCL 48 ML/MIN; eGFR 54 ML/MIN
[2024-02-13] MEDS: HYDROmorphone inj. 0.5 MG/0.5 ML DISP.SYRIN IV PRN (06:03)
[2024-02-13] MEDS: pantoprazole 40mg Tablet.DR PO SCH (07:30)
[2024-02-13] MEDS: heparin, porcine 5000 units/ml vial SQ SCH (07:50)
[2024-02-13] MEDS: calcium carbonate 500mg tablet PO SCH (07:51)
[2024-02-13] MEDS: cholecalciferol (vitamin D3) 1,000 unit (25mcg) tablet PO SCH (07:51)
[2024-02-13] MEDS: docusate sod 100mg capsule PO SCH (07:51)
[2024-02-13] MEDS: atorvastatin 10mg tablet PO SCH (07:55)
[2024-02-13] MEDS ORDERED: calcium carbonate 500mg tablet PO SCH (08:00)
[2024-02-13] MEDS: K and/or MAG REPLACEMENT MC SCH (08:00)
[2024-02-13] MEDS: LIDOcaine 5% patch TP SCH (08:25)
[2024-02-13] MEDS: nicotine 14mg patch - 24hr TD SCH (08:25)
[2024-02-13] MEDS ORDERED: pneumococcal 23-VAL P-sac vacc 25 mcg/0.5ml vial IMVAC ONE (10:00)
[2024-02-13] MEDS ORDERED: fentaNYL/PF 50MCG/1 ML 2ML syringe ONE (11:17)
[2024-02-13] MEDS ORDERED: dexamethasone sod phosphate 4mg/ml inj. ONE (11:18)
[2024-02-13] MEDS ORDERED: LIDOcaine 2% (20mg/ml) 5ml vial ONE (11:18)
[2024-02-13] MEDS ORDERED: ondansetron/PF 4mg/2ml inj ONE (11:18)
[2024-02-13] MEDS ORDERED: midazolam 1 mg/ML 2ml injection ONE (11:18)
[2024-02-13] MEDS ORDERED: propofol inj 20 ML IV ONE (11:18)
[2024-02-13] MEDS: iohexol 300 MG/1 ML 50ml polymer ONE (11:38)
[2024-02-13] MEDS ORDERED: morphine 4 MG/ML inj SYRINge IV PRN (11:40)
[2024-02-13] MEDS ORDERED: hydrALAZINE 20mg/ml inj. IV PRN (11:40)
[2024-02-13] MEDS ORDERED: fentaNYL/PF 50MCG/1 ML 2ML syringe IV PRN ×2 (11:40)
[2024-02-13] MEDS: ringers solution, lacted 1,000 ML IV SCH (11:40)
[2024-02-13] MEDS ORDERED: morphine 2 MG/ML inj. syringe IV PRN (11:40)
[2024-02-13] MEDS ORDERED: labetalol 20mg/4ml (5mg/ml) syringe IV PRN (11:40)
[2024-02-13] MEDS ORDERED: ondansetron/PF 4mg/2ml inj IV PRN (11:40)
[2024-02-13] MEDS ORDERED: sevoflurane 250ml liquid IH ONE (11:50)
[2024-02-13] MEDS: normal saline 1000ml 1,000 ML IV ONE ×3 (20:10→22:30)
[2024-02-13] MEDS ORDERED: normal saline 1000ml 1,000 ML IV ONE (21:45)
[2024-02-13] MEDS: normal saline 1000ml 1,000 ML IV SCH (21:51)
[2024-02-13] MEDS: CefTRIAXone/D5W-Rocephin 1gm 50 ML IV SCH (22:07)
[2024-02-13] MEDS: cyclobenzaprine 10mg tablet PO SCH (23:31)
[2024-02-14] VITALS (14 sets, daily range): BP systolic 82–102; BP diastolic 32–61; PULSE 63–79; RESP 16–20; TEMP 97.4–98.6; O2SAT 89–97
[2024-02-14 04:14] LABS: BASOPHILS % (AUTO) 0.1 % (0-1); EOSINOPHILS % (AUTO) 0 % (0-6); HEMATOCRIT 33.5 % (35.0-45.0); HEMOGLOBIN 10.4 g/dl (12.0-16.0); LYMPHOCYTES # (AUTO) 0.7 X10'3 (1.1-4.8); LYMPHOCYTES % (AUTO) 3.2 % (21-51); MEAN CORPUSCULAR HEMOGLOBIN 28.5 PG (27.0-31.0); MEAN CORPUSCULAR HGB CONC 31.1 g/dL (33.0-36.5); MEAN CORPUSCULAR VOLUME 91.5 FL (78-98); MEAN PLATELET VOLUME 8.8 FL (7.4-10.4); MONOCYTES # (AUTO) 0.7 X10'3 (0-0.9); MONOCYTES % (AUTO) 3.5 % (2-12); NEUTROPHILS # (AUTO) 19.3 X10'3 (1.8-7.7); NEUTROPHILS % (AUTO) 93.2 % (42-75); PLATELET COUNT 171 X10'3 (140-440); RED BLOOD COUNT 3.66 X10'6 (4.20-5.60); WHITE BLOOD COUNT 20.7 X10'3 (4.5-11.0)
[2024-02-14 04:27] LABS: ALANINE AMINOTRANSFERASE 17 U/L (12-78); ALBUMIN 2.4 G/DL (3.4-5.0); ALBUMIN/GLOBULIN RATIO 0.5 (1.1-1.5); ALKALINE PHOSPHATASE 89 IU/L (46-116); ANION GAP 8 (8-16); ASPARTATE AMINO TRANSFERASE 8 U/L (10-37); BILIRUBIN,TOTAL 0.4 MG/DL (0.1-1.0); BLOOD UREA NITROGEN 14 MG/DL (7-18); BUN/CREATININE RATIO 16.1 (10.0-20.0); CALCIUM 8.5 MG/DL (8.5-10.1); CHLORIDE 110 MMOL/L (99-107); CREATININE 0.87 MG/DL (0.40-0.90); GLUCOSE 123 MG/DL (70-104); MAGNESIUM 1.8 MG/DL (1.5-2.4); POTASSIUM 4.4 MMOL/L (3.5-5.1); SODIUM 141 MMOL/L (135-145); TOTAL CARBON DIOXIDE 22.8 MMOL/L (24-32); TOTAL PROTEIN 6.8 G/DL (6.4-8.2); eCRCL 58 ML/MIN; eGFR 67 ML/MIN
[2024-02-14] MEDS: albuterol 2.5 MG/3 ML nebule NEB PRN (07:48)
[2024-02-14] MEDS ORDERED: LEVO-65 PO (13:12)
[2024-02-14] MEDS ORDERED: tamsulosin capsule PO (13:12)
== END 2024-02-14 15:22 | disposition home or self-care (01) | DRG 446 ==
LOC: ER 19:32 → ED HOLD 21:45 → SUR 3N 22:47
PROVIDERS: ADMIT Internal Medicine Critical Care Medicine; ATTEND Internal Medicine
PROC: 0TC68ZZ Extirpation of Matter from Right Ureter, Via Natural or Artificial Opening Endoscopic (ICD-10-PCS; 2024-02-13)
PROC: 0T768DZ Dilation of Right Ureter with Intraluminal Device, Via Natural or Artificial Opening Endoscopic (ICD-10-PCS; principal; 2024-02-13 11:50)
DX: N13.6 Pyonephrosis (principal); B96.20 Unspecified Escherichia coli [E. coli] as the cause of diseases classified elsewhere; E78.00 Pure hypercholesterolemia, unspecified; J44.9 Chronic obstructive pulmonary disease, unspecified; E83.52 Hypercalcemia; R74.8 Abnormal levels of other serum enzymes; M81.0 Age-related osteoporosis without current pathological fracture; G89.29 Other chronic pain; K21.9 Gastro-esophageal reflux disease without esophagitis; Z96.652 Presence of left artificial knee joint; E78.5 Hyperlipidemia, unspecified; M54.9 Dorsalgia, unspecified; F17.210 Nicotine dependence, cigarettes, uncomplicated; Z86.73 Personal history of transient ischemic attack (TIA), and cerebral infarction without residual deficits; Z79.899 Other long term (current) drug therapy; Z88.0 Allergy status to penicillin; Z88.2 Allergy status to sulfonamides; Z88.1 Allergy status to other antibiotic agents; Z88.5 Allergy status to narcotic agent; Z71.6 Tobacco abuse counseling
CPT/HCPCS: 36415; 74176; 76000; 80053; 81001; 81025; 82948; 83690; 83735; 85025; 87077; 87081; 87088; 87186; 94640; 94760; 97116; 97161; 97530; 97535; 99285; A4615; A4618; C1758; C1769; C2617; G0378; J0696; J1100; J1170; J1644; J1885; J2250; J2270; J2371; J2405; J2704; J3010; J3490; J7030; J7120; Q9967

== ENCOUNTER → 2024-02-18 | Outpatient (CLI) | payer MEDICAID ==
[~2024-02-18] MED LIST changes: -ADV50100 INH; -ALBU18HF2 INH; +ALBU8HFA INH; -CALC-1260 PO; +LEVO-65 PO; +tamsulosin capsule PO
== END | disposition home or self-care (01) ==
LOC: MRI 12:30
PROVIDERS: ATTEND Nurse Practitioner Adult Health
DX: S32.040A Wedge compression fracture of fourth lumbar vertebra, initial encounter for closed fracture (principal); M47.26 Other spondylosis with radiculopathy, lumbar region; M48.03 Spinal stenosis, cervicothoracic region; M50.30 Other cervical disc degeneration, unspecified cervical region; M47.813 Spondylosis without myelopathy or radiculopathy, cervicothoracic region; M48.061 Spinal stenosis, lumbar region without neurogenic claudication; M48.02 Spinal stenosis, cervical region; M25.78 Osteophyte, vertebrae; M54.50 Low back pain, unspecified; R20.2 Paresthesia of skin; R29.898 Other symptoms and signs involving the musculoskeletal system; X58.XXXA Exposure to other specified factors, initial encounter; Y93.89 Activity, other specified; Y92.89 Other specified places as the place of occurrence of the external cause; Y99.8 Other external cause status
CPT/HCPCS: 72141; 72148

== ENCOUNTER 2024-02-19 23:49 | Emergency (ER) | payer MEDICAID ==
[~2024-02-19] VITALS: Ht 160 cm; Wt 7.0 kg
[2024-02-20] MEDS: normal saline 1000ml 1,000 ML IV ONE (00:32)
[2024-02-20 00:38] LABS: BILIRUBIN,URINE NEGATIVE (Neg); GLUCOSE, URINE NEGATIVE (Neg); KETONES,URINE NEGATIVE (Neg); LEUKOCYTE ESTERASE ,URINE TRACE (Neg); OCCULT BLOOD,URINE LARGE (Neg); PROTEIN,URINE 100 mg/dl (Neg); UROBILINOGEN,URINE 0.2 E.U/dL (0.2-1.0)
[2024-02-20 00:40] LABS: CLARITY,URINE CLOUDY (Clear); COLOR,URINE DARK YELLOW (Yellow); NITRITES, URINE NEGATIVE (Neg); UA COLLECTION TYPE CLN CATCH MIDSTREAM
[2024-02-20 00:41] LABS: BASOPHILS # (AUTO) 0.1 X10'3 (0-0.2); BASOPHILS % (AUTO) 1.1 % (0-1); EOSINOPHILS # (AUTO) 0.4 X10'3 (0-0.9); EOSINOPHILS % (AUTO) 3.6 % (0-6); HEMATOCRIT 39.5 % (35.0-45.0); LYMPHOCYTES % (AUTO) 28.7 % (21-51); MEAN CORPUSCULAR HEMOGLOBIN 29.4 PG (27.0-31.0); MEAN CORPUSCULAR HGB CONC 32.8 g/dL (33.0-36.5); MEAN CORPUSCULAR VOLUME 89.6 FL (78-98); MEAN PLATELET VOLUME 8.2 FL (7.4-10.4); MONOCYTES # (AUTO) 0.7 X10'3 (0-0.9); MONOCYTES % (AUTO) 6.5 % (2-12); NEUTROPHILS # (AUTO) 6.2 X10'3 (1.8-7.7); NEUTROPHILS % (AUTO) 60.1 % (42-75); PLATELET COUNT 309 X10'3 (140-440); RED BLOOD COUNT 4.41 X10'6 (4.20-5.60); RED CELL DISTRIBUTION WIDTH 14.8 % (11.5-14.5); WHITE BLOOD COUNT 10.3 X10'3 (4.5-11.0)
[2024-02-20 00:51] LABS: BACTERIA,URINE 2+ /HPF (Neg); MUCUS STRANDS NONE SEEN /LPF (Neg); RBC,URINE TNTC /HPF (0-2); SQUAMOUS EPITHELIAL CELL,UR MODERATE /LPF (FEW)
[2024-02-20 00:54] LABS: APTT 26 SECONDS (22-32); PROTHROMBIN TIME 10.1 SECONDS (9.0-12.0)
[2024-02-20 00:55] LABS: ALANINE AMINOTRANSFERASE 26 U/L (12-78); ALBUMIN/GLOBULIN RATIO 0.7 (1.1-1.5); ALKALINE PHOSPHATASE 110 IU/L (46-116); ANION GAP 5 (8-16); ASPARTATE AMINO TRANSFERASE 17 U/L (10-37); BILIRUBIN,TOTAL 0.2 MG/DL (0.1-1.0); BLOOD UREA NITROGEN 19 MG/DL (7-18); CALCIUM 10.5 MG/DL (8.5-10.1); CHLORIDE 105 MMOL/L (99-107); GLUCOSE 126 MG/DL (70-104); POTASSIUM 4.7 MMOL/L (3.5-5.1); SODIUM 137 MMOL/L (135-145); TOTAL CARBON DIOXIDE 26.7 MMOL/L (24-32); TOTAL PROTEIN 7.5 G/DL (6.4-8.2); eCRCL 7 ML/MIN; eGFR 57 ML/MIN
[2024-02-20 01:11] LABS: PLATELET ESTIMATE NORMAL; TOTAL CELLS COUNTED 100
[2024-02-20] MEDS: fentaNYL/PF 50MCG/1 ML 2ML syringe IV ONE (01:20)
[2024-02-20] MEDS: ondansetron/PF 4mg/2ml inj IV ONE (01:20)
[2024-02-20] MEDS: ketorolac trometh. 30mg/ml inj. IV ONE (02:53)
[2024-02-20 04:09] VITALS: BP 103/62; PULSE 67; RESP 16; TEMP 98.3; O2SAT 96
== END 2024-02-20 04:10 | disposition home or self-care (01) ==
LOC: ER 23:51
DX: R10.84 Generalized abdominal pain (principal); R31.9 Hematuria, unspecified; E78.00 Pure hypercholesterolemia, unspecified; J44.9 Chronic obstructive pulmonary disease, unspecified; K21.9 Gastro-esophageal reflux disease without esophagitis; G89.29 Other chronic pain; M54.9 Dorsalgia, unspecified; Z88.1 Allergy status to other antibiotic agents; Z88.0 Allergy status to penicillin; Z88.2 Allergy status to sulfonamides; Z88.8 Allergy status to other drugs, medicaments and biological substances; Z79.899 Other long term (current) drug therapy; Z79.2 Long term (current) use of antibiotics; Z98.890 Other specified postprocedural states
CPT/HCPCS: 36415; 71045; 74176; 80053; 81001; 84145; 85007; 85025; 85610; 85730; 86885; 86900; 86901; 87088; 93005; 96361; 96374; 96375; 99285; J1885; J2405; J3010; J7030; A4620

== ENCOUNTER 2024-05-04 18:22 | Emergency (ER) | payer MEDICAID ==
[~2024-05-04] VITALS: Ht 160 cm; Wt 71.5 kg
[~2024-05-04 18:22] MED LIST changes: -LEVO-65 PO
[2024-05-04 18:23] VITALS: BP 102/71; PULSE 88; RESP 18; O2SAT 94
[2024-05-04] MEDS ORDERED: FURO-150 PO (20:13)
[2024-05-04] MEDS ORDERED: POTA-188 PO (20:13)
[2024-05-04] MEDS: furosemide 20MG tablet PO ONE (20:24)
[2024-05-04 20:27] VITALS: TEMP 98.4
== END 2024-05-04 20:31 | disposition home or self-care (01) ==
LOC: ER 18:22
DX: I50.23 Acute on chronic systolic (congestive) heart failure (principal); R60.1 Generalized edema; E78.00 Pure hypercholesterolemia, unspecified; J44.9 Chronic obstructive pulmonary disease, unspecified; G89.29 Other chronic pain; M54.9 Dorsalgia, unspecified; K21.9 Gastro-esophageal reflux disease without esophagitis; Z88.0 Allergy status to penicillin; Z88.2 Allergy status to sulfonamides; M81.0 Age-related osteoporosis without current pathological fracture; Z88.8 Allergy status to other drugs, medicaments and biological substances; Z88.1 Allergy status to other antibiotic agents; Z79.899 Other long term (current) drug therapy; Z98.890 Other specified postprocedural states
CPT/HCPCS: 99283

== ENCOUNTER 2024-06-02 17:09 | Emergency (ER) | payer MEDICAID ==
[~2024-06-02] VITALS: Ht 160 cm; Wt 74.0 kg
[~2024-06-02 17:09] MED LIST changes: +FURO-150 PO; +POTA-188 PO
[2024-06-02 17:23] VITALS: BP 95/54; PULSE 76; RESP 18; TEMP 97.8; O2SAT 90
== END 2024-06-02 19:23 | disposition home or self-care (01) ==
LOC: ER 17:09
DX: S13.4XXA Sprain of ligaments of cervical spine, initial encounter (principal); M54.50 Low back pain, unspecified; M54.2 Cervicalgia; J44.9 Chronic obstructive pulmonary disease, unspecified; G89.29 Other chronic pain; E78.00 Pure hypercholesterolemia, unspecified; K21.9 Gastro-esophageal reflux disease without esophagitis; M81.0 Age-related osteoporosis without current pathological fracture; Z88.0 Allergy status to penicillin; Z88.1 Allergy status to other antibiotic agents; Z88.2 Allergy status to sulfonamides; Z88.5 Allergy status to narcotic agent; Z88.6 Allergy status to analgesic agent; Z88.8 Allergy status to other drugs, medicaments and biological substances; Z79.899 Other long term (current) drug therapy; V43.52XA Car driver injured in collision with other type car in traffic accident, initial encounter; Y93.89 Activity, other specified; Y92.89 Other specified places as the place of occurrence of the external cause; Y99.8 Other external cause status
CPT/HCPCS: 72040; 72100; 99284; L0172

== ENCOUNTER 2024-07-23 15:16 | Emergency (ER) | payer MEDICAID ==
[~2024-07-23] VITALS: Ht 160 cm; Wt 73.6 kg
[~2024-07-23 15:16] MED LIST changes: -FURO-150 PO; -POTA-188 PO
[2024-07-23 15:22] VITALS: BP 108/70; PULSE 91; O2SAT 95
[2024-07-23 16:30] VITALS: RESP 16
[2024-07-23] MEDS: ketorolac trometh 15mg/ml vial 15 MG/ML ML IM ONE (16:30)
[2024-07-23] MEDS ORDERED: CYCL-1 PO (18:24)
[2024-07-23 18:55] VITALS: TEMP 97.3
== END 2024-07-23 18:56 | disposition home or self-care (01) ==
LOC: ER 15:17
DX: G89.29 Other chronic pain (principal); M54.50 Low back pain, unspecified; M81.0 Age-related osteoporosis without current pathological fracture; E78.00 Pure hypercholesterolemia, unspecified; J44.9 Chronic obstructive pulmonary disease, unspecified; K21.9 Gastro-esophageal reflux disease without esophagitis; Z88.0 Allergy status to penicillin; Z88.1 Allergy status to other antibiotic agents; Z88.2 Allergy status to sulfonamides; Z88.5 Allergy status to narcotic agent; Z98.890 Other specified postprocedural states; W18.30XA Fall on same level, unspecified, initial encounter; Y93.89 Activity, other specified; Y92.009 Unspecified place in unspecified non-institutional (private) residence as the place of occurrence of the external cause; Y99.8 Other external cause status
CPT/HCPCS: 72131; 96372; 99285; J1885

== ENCOUNTER 2024-08-29 05:53 | Outpatient (CLI) | payer MEDICAID | END 2024-08-29 23:59 | disposition home or self-care (01) | LOC: MRI02 05:53 | PROVIDERS: ATTEND Pediatrics Sports Medicine | DX: M81.0 Age-related osteoporosis without current pathological fracture (principal); M25.462 Effusion, left knee; S32.040A Wedge compression fracture of fourth lumbar vertebra, initial encounter for closed fracture; X58.XXXA Exposure to other specified factors, initial encounter; Y93.89 Activity, other specified; Y92.89 Other specified places as the place of occurrence of the external cause; Y99.8 Other external cause status | CPT/HCPCS: 73718 ==

== ENCOUNTER 2025-01-30 19:09 | Inpatient (IN) | payer MEDICAID ==
[~2025-01-30] VITALS: Ht 160 cm; Wt 73.8 kg
[2025-01-30] MEDS: HEPARIN DRIP-CARDIAC**PHARMACIST-TO-DOSE IV SCH (02:00)
[~2025-01-30 19:09] MED LIST changes: +LIDO-52 TOP; -LIDO700A32 TOP
--- NOTE | 2025-01-30 19:44 | ELECTROCARDIOGRAPH REPORT ---
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
[2025-01-30 19:59] LABS: MEAN PLATELET VOLUME 8.4 FL (7.4-10.4); RED CELL DISTRIBUTION WIDTH 15.5 % (11.5-14.5)
--- NOTE | 2025-01-30 20:07 | RADIOLOGY REPORT ---
CHEST RADIOGRAPH Indication: CP Technique: Single frontal view of the chest was obtained Comparison: DI CHEST,SINGLE VIEW on DOS: 02/20/24, CHEST,SINGLE VIEW on DOS: 05/18/21, CHEST,SINGLE EW on DOS: 03/25/21 FINDINGS: Lines and Tubes: None Lungs: No focal consolidation. Pleura: No effusion. No pneumothorax. Cardiomediastinal contours: Unremarkable Bones: No acute osseous abnormality. Surgical clips are noted over the cervical region. IMPRESSION: No acute cardiopulmonary disease.
[2025-01-30 20:20] LABS: CREATININE 0.80 MG/DL (0.40-0.90); PRO BRAIN NATRIURETIC PEPTIDE 242 PG/ML (0-125); TOTAL CARBON DIOXIDE 28.9 MMOL/L (24-32); eCRCL 62 ML/MIN; eGFR 73 ML/MIN
--- NOTE | 2025-01-30 20:44 | Physician Documentation ---
History of Present Illness ~ Chief Complaint: Shortness of Breath Stated Complaint: SWOLLEN FEET, SOB Time Seen by MD: 19:53 Primary Medical Doctor: DR MURRAY HPI 59-year-old female presents to the ED with increased shortness of breath and lower extremity edema. She states she has been diagnosed with a congestive heart failure but has not had to take Lasix for quite some time.. Denies any chest pain. States she does have a history of atrial fibrillation . Additionally patient currently smokes cigarettes and has COPD. Denies any nausea vomiting or radiating chest pain Day of Onset: Jan 30, 2025 Medication Reconciliation Allergies: Coded Allergies: Penicillins (Unverified Allergy, Severe, HIVES, THROAT SWELLING, 01/30/25) Sulfa (Sulfonamide Antibiotics) (Unverified Allergy, Intermediate, HIVES,SWELLING, 01/30/25) azithromycin (Verified Allergy, Intermediate, HIVES,SWELLING, 01/30/25) codeine (Unverified Allergy, Intermediate, HIVES,SWELLING, 01/30/25) erythromycin base (Unverified Allergy, Intermediate, HIVES,SWELLING, 01/30/25) Scheduled Celecoxib* (Celebrex*), 100 MG PO BID, (Reported) Cholecalciferol (Vitamin D3) (Vitamin D3), 1 CAP PO DAILY, (Reported) Cyclobenzaprine* (Cyclobenzaprine*), 1 TAB PO HS, (Reported) Cyclobenzaprine* (Cyclobenzaprine*), 1 TAB PO Q8H Lidocaine (Lidoderm), 1 PATCH TOP DAILY, (Reported) Omeprazole (Omeprazole), 1 CAP PO DAILY, (Reported) Pravastatin Sodium (Pravastatin Sodium), 1 TAB PO DAILY, (Reported) [tamsulosin capsule], 0.4 MG PO HS Scheduled PRN Albuterol Sulfate Nebs* (Proventil Nebs*), 2.5 MG IH Q6H PRN for SOB or wheezing, (Reported) Hydrocodone Bit/Acetaminophen (Hydrocodone-Apap 10-325 Tablet), 1 TAB PO TID PRN for pain, (Reported) Promethazine HCl (Promethazine HCl), 1 TAB PO Q6H PRN PRN for nausea/vomiting, (Reported) albuterol inhaler (Pro-Air Inhaler), 2 PUFFS INH Q4HPRN PRN for wheezing, (Reported) Past Medical History Past Medical History: High Cholesterol, COPD, GERD, Chronic Back Pain, Osteoporosis, *PSYCH* Past Surgical History: orthopedic surgeries, other Other Past Surgical History: Carotid artery Patient History: FH: heart attack Alcohol Use: None Drug Use: none Lives In: Home Occupation: employed Review of Systems All Other Systems at this time: Reviewed and Negative ROS General: Alert, no apparent distress. Respiratory: Lungs clear, no respiratory distress. Chest: No accessory muscle use. Cardiovascular: Regular rate and rhythm, no murmurs. Extremities: Bilateral 2+ pitting edema Neurologic: Oriented x4. Psychiatric: Normal mood and affect. Skin: Normal color, warm and dry. No edema, no ecchymosis. Physical Exam Vital Signs: Temperature: 98.0, Source: Temporal, Heart Rate: 84, Respiratory Rate: 18, BP: 109/65, Pulse Oximetry: 96, Weight: 73.750 Oxygen Flow Rate: 0 Progress Results/Orders Results/Orders Orders - BIGG HSIEH ROOFER APPLICATOR Page Hospitalist (01/30/25 ) Completed Orders - BIGG HSIEH ROOFER APPLICATOR Ipratropium/Albuterol Nebule (Ipratrop/A (01/30/25 20:33) Methylprednisolone Sod Succ (Solumedrol (01/30/25 20:50) Furosemide Inj (Lasix Inj) (01/30/25 20:50) Medications Received in ER Medications (Trade) Dose Ordered Sig/Chan Route PRN Reason Start Time Stop Time Status Last Admin Dose Admin (ipratrop/ albuterol 0.5-3(2.5) MG/3ml nebule) 3 ml NOW STAT NEB 01/30/25 20:33 01/30/25 20:35 DC 01/30/25 21:30 3 ML (SoluMEDROL 125mg inj) 125 mg ONCE ONCE IV 01/30/25 20:50 01/30/25 20:51 DC 01/30/25 21:18 125 MG (Lasix inj) 60 mg ONCE ONCE IV 01/30/25 20:50 01/30/25 20:51 DC 01/30/25 21:17 60 MG Vital Signs 01/30/25 01/30/25 01/30/25 19:31 20:27 20:37 Temp 98.0 Pulse 84 72 Resp 16 18 16 B/P (MAP) 109/65 119/61 (80) Pulse Ox 96 98 O2 Flow Rate 0 Laboratory Tests Test 01/30/25 19:34 01/30/25 19:51 Glucometer 126 H White Blood Count 7.8 Red Blood Count 4.65 Hemoglobin 13.3 Hematocrit 40.0 Mean Corpuscular Volume 86.1 Mean Corpuscular Hemoglobin 28.7 Mean Corpuscular Hemoglobin Concent 33.3 Red Cell Distribution Width 15.5 H Platelet Count 227 Mean Platelet Volume 8.4 Neutrophils (%) (Auto) 66.4 Lymphocytes (%) (Auto) 24.9 Monocytes (%) (Auto) 5.0 Eosinophils (%) (Auto) 2.6 Basophils (%) (Auto) 1.1 H Neutrophils # (Auto) 5.2 Lymphocytes # (Auto) 1.9 Monocytes # (Auto) 0.4 Eosinophils # (Auto) 0.2 Basophils # (Auto) 0.1 CBC Comment Sodium Level 138 Potassium Level 4.1 Chloride Level 105 Carbon Dioxide Level 28.9 Anion Gap 4 L Blood Urea Nitrogen 11 Creatinine 0.80 Estimated GFR/1.73 m2 73 BUN/Creatinine Ratio 13.8 Glucose Level 115 H Calcium Level 10.1 Troponin I High Sensitivity 6 Pro-B-Type Natriuretic Peptide 242 H Albumin 3.3 L Chemistry Comments Medical Decision Making Findings This patient has a multitude of comorbidities including atrial fibrillation, CHF and suspected COPD. At this time I am going to request for hospitalization for diuresis and ongoing breathing treatments along with corticosteroid administration.. Not currently suspecting a cardiac event however she does require further observation and evaluation.. She states she has had an echocardiogram done before. She could not remember what her ejection fraction was.. Differential Dx:Considerations: Include: anxiety, asthma, bronchitis, cardiogenic shock, CHF, COPD, dysrhythmia, hypertension, accelerated, hypertension, essential, hypertension, malignant, hyperventilation, hypon atremia, myocardial infarction, panic attack, pneumonia, pneumonitis, pneumothorax, PSVT, pulmonary embolism, respiratory distress, respiratory failure, sinusitis, upper resp. infection, other Departure Disposition: ADMITTED INPATIENT Impression: Primary Impression: Respiratory distress Additional Impressions: Chronic obstructive pulmonary disease Acute on chronic systolic heart failure 2+ pitting edema Condition: Fair Referrals: NO PRIMARY CARE PROVIDER (PCP) Signature Scribe Signature: g Attestation: Scribed for Bigg Hsieh General Farmer by Bigg Holcomb NP . 01/30/25 23:02 BIGG HSIEH NP Jan 30, 2025 20:44
[2025-01-30] MEDS: furosemide 10 MG/1 ML 10ml inj IV ONE (21:17)
[2025-01-30] MEDS: ipratropium/albuterol 3ml nebule NEB STA (21:30)
[2025-01-30 21:33] VITALS: PULSE 68; RESP 18; O2SAT 96
[2025-01-30 21:41] VITALS: PULSE 70; RESP 18; O2SAT 100
[2025-01-30] MEDS ORDERED: magnesium sulf-water 2g/50mL 50 ML IV PRN (22:45)
[2025-01-30] MEDS ORDERED: potassium Cl 20 mEq SR tablet PO PRN ×2 (22:45)
[2025-01-30] MEDS ORDERED: mag hydrox/Alum hydrox/simeth 30ml oral suspension PO PRN (22:45)
[2025-01-30] MEDS ORDERED: potassium Cl 40MEQ/1/2NS 520ml 520 ML IV PRN (22:45)
[2025-01-30] MEDS ORDERED: magnesium Cl slow-release 64mg tablet PO PRN (22:45)
[2025-01-30] MEDS ORDERED: magnesium hydroxide 30ml (MOM) UD suspension PO PRN (22:45)
[2025-01-30] MEDS ORDERED: magnesium sulf-water 4G/100mL 100 ML IV PRN (22:45)
[2025-01-30] MEDS ORDERED: ondansetron/PF 4mg/2ml inj IV PRN (22:45)
--- NOTE | 2025-01-30 23:11 | HISTORY AND PHYSICAL-Residence ---
History & Physical Providers to CC Resident Creating Document: STEVE WILEY, RES CC: DORA DE LA ROSA MD ~ History of Present Illness Primary Medical Doctor: DR MURRAY Allergies: Coded Allergies: Penicillins (Unverified Allergy, Severe, HIVES, THROAT SWELLING, 01/30/25) Sulfa (Sulfonamide Antibiotics) (Unverified Allergy, Intermediate, HIVES,SWELLING, 01/30/25) azithromycin (Verified Allergy, Intermediate, HIVES,SWELLING, 01/30/25) codeine (Unverified Allergy, Intermediate, HIVES,SWELLING, 01/30/25) erythromycin base (Unverified Allergy, Intermediate, HIVES,SWELLING, 01/30/25) Home Medications Home Medications Active Cyclobenzaprine* (Cyclobenzaprine HCl) 10 Mg Tablet 1 Tab PO Q8H 10 Days [tamsulosin capsule] 0.4 MG Cap 0.4 Mg PO HS 30 Days Reported Lidoderm (Lidocaine) 5 % Adh..patch 1 Patch TOP DAILY may wear up to 12 hours Cyclobenzaprine* (Cyclobenzaprine HCl) 10 Mg Tablet 1 Tab PO HS Pro-Air Inhaler (Albuterol) 8.5 Gm Inhaler 2 Puffs INH Q4HPRN PRN Celebrex* (Celecoxib) 100 Mg Capsule 100 Mg PO BID Vitamin D3 (Cholecalciferol (Vitamin D3)) 50 Mcg (2000 Unit) Capsule 1 Cap PO DAILY Promethazine HCl 25 Mg Tablet 1 Tab PO Q6H PRN PRN Hydrocodone-Apap 10-325 Tablet (Acetaminophen/Hydrocodone Bitart) 10mg/325mg Tablet 1 Tab PO TID PRN Omeprazole 20 Mg Capsule. 1 Cap PO DAILY Pravastatin Sodium 20 Mg Tablet 1 Tab PO DAILY 30 Days Proventil Nebs* (Albuterol) 2.5 Mg/0.5 Ml Vial.neb 2.5 Mg IH Q6H PRN Family History Family History: FH: heart attack Past Social History Smoking: Cigarettes, Greater than 1 pack/day Alcohol Use: None Drug Use: None Lives In: Home Occupation: employed ROS All Other Systems: Reviewed and Negative Exam Vitals: Vital Signs Date Time Temp Pulse Resp B/P (MAP) Pulse Ox O2 Delivery O2 Flow Rate FiO2 01/30/25 22:48 76 14 120/60 (80) 98 7/10/25 21:41 Room Air* 0 21 01/30/25 19:31 98.0 Diagnostic Data Last Recorded Lab Results: 01/30/25195001/30/251950 STEVE WILEY, RES Jan 30, 2025 23:11
--- NOTE | 2025-01-30 23:19 | HISTORY AND PHYSICAL-Residence ---
History & Physical Providers to CC Resident Creating Document: STEVE LAYTON, RES CC: DORA DE LA ROSA MD ~ History of Present Illness Primary Medical Doctor: DR MURRAY Reason for Admit\Complaint: sob History of Present Illness Attestation I agree with the residents assessment and plan as below: Plan: lasix for volume overload nebs and steroids for susepcted COPD trend troponin continue heparin infusion x 48 hours CCT 49 min using HIPPA compliant A/V technology A 59-year-old female with past medical history of COPD, carotid stenosis status post endarterectomy, TIA presented to the ED in view of gradually worsening shortness of breath over the last one week. Patient was able to walk about two blocks until a week ago which worsened to the point of having shortness of breaths at rest. Patient also states she has had worsening of leg swelling within the last five months that improved with Lasix, but got worsened in the last week with left LE worse than the right lower extremity. Patient endorses intermittent chest pain that has been present over a week which is a feeling of elephant sitting on the chest with radiation to the left arm. Patient states the chest pain does not vary with exertion or rest. Patient had associated left upper and lower extremity numbness and tingling with chest pain, dizziness, palpitations, diaphoresis. Patient endorses orthopnea and PND and decreased urine output. Patient usually uses 2 L of oxygen at home. Allergies: Coded Allergies: Penicillins (Unverified Allergy, Severe, HIVES, THROAT SWELLING, 01/30/25) Sulfa (Sulfonamide Antibiotics) (Unverified Allergy, Intermediate, HIVES,SWELLING, 01/30/25) azithromycin (Verified Allergy, Intermediate, HIVES,SWELLING, 01/30/25) codeine (Unverified Allergy, Intermediate, HIVES,SWELLING, 01/30/25) erythromycin base (Unverified Allergy, Intermediate, HIVES,SWELLING, 01/30/25) Home Medications Home Medications Active Cyclobenzaprine* (Cyclobenzaprine HCl) 10 Mg Tablet 1 Tab PO Q8H 10 Days [tamsulosin capsule] 0.4 MG Cap 0.4 Mg PO HS 30 Days Reported Lidoderm (Lidocaine) 5 % Adh..patch 1 Patch TOP DAILY may wear up to 12 hours Cyclobenzaprine* (Cyclobenzaprine HCl) 10 Mg Tablet 1 Tab PO HS Pro-Air Inhaler (Albuterol) 8.5 Gm Inhaler 2 Puffs INH Q4HPRN PRN Celebrex* (Celecoxib) 100 Mg Capsule 100 Mg PO BID Vitamin D3 (Cholecalciferol (Vitamin D3)) 50 Mcg (2000 Unit) Capsule 1 Cap PO DAILY Promethazine HCl 25 Mg Tablet 1 Tab PO Q6H PRN PRN Hydrocodone-Apap 10-325 Tablet (Acetaminophen/Hydrocodone Bitart) 10mg/325mg Tablet 1 Tab PO TID PRN Omeprazole 20 Mg Capsule. 1 Cap PO DAILY Pravastatin Sodium 20 Mg Tablet 1 Tab PO DAILY 30 Days Proventil Nebs* (Albuterol) 2.5 Mg/0.5 Ml Vial.neb 2.5 Mg IH Q6H PRN Past Medical History Past Medical History COPD Osteoporosis Diabetes mellitus type 2 Heart failure TIA Carotid stenosis status post endarterectomy Sleep apnea HLD Ectopic Past Surgical History Surgical History Comment Endarterectomy Nephrolithiasis status post lithotripsy Orthopedic surgeries Left knee replacement Family History Family History: FH: heart attack Past Social History Social History Comment Half pack of cigarettes per day for the last 50 years Does not consume marijuana, alcohol, illicit drugs Primary care: Melida Ortiz Lives at home by herself Dr. Vallejo for cardiology Smoking: Cigarettes, Greater than 1 pack/day Alcohol Use: None Drug Use: None Lives In: Home Occupation: employed ROS ROS All other systems reviewed in full and negative except for the pertinent positives mentioned in HPI Exam Vitals: Vital Signs Date Time Temp Pulse Resp B/P (MAP) Pulse Ox O2 Delivery O2 Flow Rate FiO2 01/30/25 22:48 76 14 120/60 (80) 98 01/30/25 21:41 Room Air* 0 21 01/30/25 19:31 98.0 General: General: Alert, awake, oriented, not in acute distress HEENT: PERRLA, no icterus, pallor, lymphadenopathy, carotid bruit Respiratory system: Bilateral vesicular breath sounds heard, bilateral on inhalation, crackles present all lung regions CVS: S1-S2 heard, no murmurs/rubs/gallop GI: Soft, nontender, no organomegaly, no guarding/rigidity, bowel sounds present Neuro: No focal neurological deficits present Extremities: Bilateral 2+ pitting edema present Skin: Warm and dry Diagnostic Data Last Recorded Lab Results: 01/30/25195001/30/251 Advance Care Planning Advanced Care plannin - 30 Minutes (I spent 20 minutes discussing various resuscitative measures and the patient decided to be full code) Additional Plan Assessment: A 59 yr old female with a past medical history of COPD, carotid stenosis status post endarterectomy, TIA presented to the ED in view of shortness of breaths and lower extremity pedal edema. Patient also stated that she has intermittent chest pain. In the ED EKG showed ST depressions in one, aVL, V5 and V6 with no elevation in troponins. Patient is admitted for the evaluation of acute hypoxemic respiratory failure and unstable angina. Plan: Acute hypoxemic respiratory failure 2/2 acute COPD exacerbation Acute exacerbation of heart failure, pending echo ACS: Stage D/ NYHA Class IV Chest x-ray: No acute cardiopulmonary disease. Elevated proBNP Follow up with CT chest and echo IV Lasix 40 mg b.i.d., titrate Lasix as required DuoNeb q.4h scheduled, q.2h p.r.n. IV Rocephin for prophylaxis, patient is allergic to azithromycin Received one dose of Solu-Medrol 125 mg, continue IV Solu-Medrol 60 mg q.8h Patient is started on carvedilol 6.25 mg b.i.d., lisinopril 5 mg. Consider further optimization with GDM T in a.m. Strict Is&Os Incentive spirometry Unstable angina GILSON: EKG: ST depressions in one, aVL, V5, V6, RBBB with normal axis Normal troponins, follow up with repeat troponin Received one dose of aspirin 325 mg, continue aspirin 81 mg. Optimization with GDM T: Carvedilol 6.25 mg b.i.d., lisinopril 5 mg Started on IV heparin drip Cardiology consult in a.m., NPO after midnight for possible cardiac catheterization in a.m. Evaluation for CVA H/o TIA Follow up with CT head Asymptomatic bacteriuria Urinalysis positive for nitrites and leukocyte esterase Follow up with urine culture Diabetes mellitus type 2 A1c: 6.1 Low-dose sliding scale insulin Hyperlipidemia LDL: 170 LDL goal less than 60 Continue pravastatin 20 mg Carotid stenosis s/p endarterectomy Underwent in 2011 Sleep apnea Outpatient follow up Code status: Full code Diet: NPO after midnight Anticoagulation: Heparin drip Disposition: Admit to PCU, follow up with echo, cardiology consult in a.samantha Layton MD Internal Medicine, PGY 2 Date of Service: Jan 31, 2025 Billing Provider: DORA DE LA ROSA MD, SIVA, RES Jan 30, 2025 23:19 DORA DE LA ROSA MD Jan 31, 2025 05:31
[2025-01-30] MEDS: aspirin 325mg tablet, delayed-release (Ecotrin) PO ONE (23:32)
[2025-01-30 23:45] VITALS: BP 112/72; PULSE 80; RESP 18; TEMP 98.8; O2SAT 94
[2025-01-30 23:53] LABS: LEUKOCYTE ESTERASE ,URINE TRACE (Neg); NITRITES, URINE POSITIVE (Neg); OCCULT BLOOD,URINE NEGATIVE (Neg)
[2025-01-30 23:55] LABS: CHOL/HDL RATIO 5.3 (0.00-4.99); LDL CHOLESTEROL 170 MG/DL (50-100)
[2025-01-30 23:55] LABS: UA COLLECTION TYPE CLN CATCH MIDSTREAM
[2025-01-30] MEDS ORDERED: azithromycin/NS 500mg/250ml 250 ML IV SCH (23:55)
[2025-01-30] MEDS ORDERED: CefTRIAXone/D5W-Rocephin 1gm 50 ML IV SCH (23:55)
[2025-01-30 23:56] LABS: APTT 29 SECONDS (22-32); INR 1.0 INR
[2025-01-31] VITALS (19 sets, daily range): BP systolic 92–103; BP diastolic 53–65; PULSE 51–83; RESP 14–18; TEMP 96.9–98; O2SAT 90–97
[2025-01-31 00:01] LABS: SQUAMOUS EPITHELIAL CELL,UR MANY /LPF (FEW)
[2025-01-31] MEDS ORDERED: ipratropium/albuterol 3ml nebule NEB PRN (00:05)
[2025-01-31] MEDS ORDERED: levoFLOXACIN-Levaquin 500mg/D5 100 ML IV SCH (00:10)
[2025-01-31] MEDS ORDERED: dextrose 50%-water 50ml dispensing syringe IV PRN ×2 (00:30)
[2025-01-31] MEDS ORDERED: glucagon, human recombinant 1mg kit SUBCUT PRN (00:30)
[2025-01-31] MEDS ORDERED: DEXTROSE 15 GM of carb/4 tabs (each vial/BOTTLE has 4 tablets) PO PRN ×2 (00:30)
--- NOTE | 2025-01-31 00:51 | RADIOLOGY REPORT ---
EXAM: CT CT HEAD INDICATION: CVA TECHNIQUE: CT of the head without intravenous contrast. Radiation Dose : 1. Head: CT Dose: CTDI volume is 46.17 cm mGy. Dose-length product is 779.46 mGy*cm The dose indicators for CT are the volume Computed Tomography (CT) Dose Index (CTDIvol) and the Dose Length Product (DLP), and are measured in units of mGy and mGy-cm, respectively. These indicators are not patient dose, but values generated from the CT scanner acquisition factors. The report includes radiation exposure data for exposures received during this examination. COMPARISON: None FINDINGS: There is no evidence of acute intracranial hemorrhage, extra-axial collection, mass effect, midline s hift, herniation or hydrocephalus. The ventricles, sulci and cisterns are age appropriate. The moreira-white differentiation is intact. The visualized paranasal sinuses and mastoid air cells are clear. The surrounding soft tissues and osseous structures are unremarkable. IMPRESSION: 1. No acute intracranial abnormality. Radiation optimization: All CT scans at this facility use at least one of these dose optimization cecy hniques: automated exposure control mA and/or kV adjustment per patient size (includes targeted exam s where dose is matched to clinical indication) or iterative reconstruction.
[2025-01-31] MEDS: CefTRIAXone/D5W-Rocephin 1gm 50 ML IV SCH (00:55)
[2025-01-31] MEDS: heparin 10,000 units/1 ML INJ IV ONE (01:48)
[2025-01-31] MEDS: MESSAGE TO NURSING IV ONE ×3 (02:00→09:45)
[2025-01-31] MEDS: heparin 25,000 UNIT/250ml bag 250 ML IV PRN (02:00)
[2025-01-31] MEDS: ipratropium/albuterol 3ml nebule NEB SCH (03:07)
--- NOTE | 2025-01-31 04:11 | RADIOLOGY REPORT ---
Procedure: CT CT CHEST Reason for study/Clinical History: copd Comparison Study: None TECHNIQUE: Multidetector CT of the chest was performed from the lung apices to the upper abdomen with out the use of intravenous contract. Axial, coronal and sagittal multiplanar reformats were performed . Radiation Dose Information: CT Dose: CTDI volume is 14.53 mGy. Dose-length product is 524.9 mGy*cm The dose indicators for CT are the volume Computed Tomography (CT) Dose Index (CTDIvol) and the Dose Length Product (DLP), and are measured in units of mGy and mGy-cm, respectively. These indicators are not patient dose, but values generated from the CT scanner acquisition factors. The report includes radiation exposure data for exposures received during this examination. FINDINGS: Lower neck: Unremarkable. Lungs: No focal consolidation. No suspicious pulmonary nodule. Heart/Vascular Structures: Normal heart size. The ascending thoracic aorta measures 3.3 cm. Atherosc lerotic vascular calcifications. No pericardial effusion. Lymph Nodes: No adenopathy Pleura: No pleural effusion or significant pneumothorax. Musculoskeletal: No acute osseous abnormality. Soft tissues: Normal. Upper abdomen: Limited portions of the upper abdomen are unremarkable. Small hiatal hernia. IMPRESSION: 1. No acute intrathoracic abnormality. Radiation optimization: All CT scans at this facility use at least one of these dose optimization cecy hniques: automated exposure control mA and/or kV adjustment per patient size (includes targeted exam s where dose is matched to clinical indication) or iterative reconstruction.
[2025-01-31 05:14] LABS: MEAN PLATELET VOLUME 8.9 FL (7.4-10.4); RED CELL DISTRIBUTION WIDTH 15.6 % (11.5-14.5)
[2025-01-31 05:28] LABS: CHOL/HDL RATIO 5.0 (0.00-4.99); CREATININE 0.98 MG/DL (0.40-0.90); LDL CHOLESTEROL 189 MG/DL (50-100); TOTAL CARBON DIOXIDE 29.8 MMOL/L (24-32); eCRCL 51 ML/MIN; eGFR 58 ML/MIN
[2025-01-31] MEDS: K and/or MAG REPLACEMENT MC SCH (08:00)
[2025-01-31] MEDS: docusate sod 100mg capsule PO SCH (08:45)
[2025-01-31] MEDS: furosemide 10 MG/1 ML 10ml inj IV SCH (08:48)
[2025-01-31] MEDS: nicotine 21mg patch - 24 hr TD SCH (08:53)
[2025-01-31] MEDS: INSULIN LISPRO 100 UNIT/ML INSULN.PEN MULTI-DOSE SQ SCH (08:54)
[2025-01-31] MEDS: heparin 10,000 units/1 ML INJ IV PRN (10:11)
[2025-01-31] MEDS: HYDROcodone/acetaminophen 5mg/325mg tablet PO PRN (11:00)
--- NOTE | 2025-01-31 13:04 | PROGRESS NOTE- Residence ---
Progress Note - Resident Providers to CC Resident Creating Document: DARIUSZ AYON RES ~ Antibiotic Timeout Antibiotic Ordered?: Yes Subjective Patient was seen and examined at bedside. She was transferred to PCU. She present with a SOB, exertional dyspnea, orthopnea, PND, and lower extremity swelling, suggesting of CHF exacerbation. However, there is no significant proBNP elevation, and CXR shows no pulmonary congestions. Symptoms improved significantly with diuresis; Lasix, supporting volume overload . Chest pain is mild, noncardiac in nature, worsened with deep breathing; no Cardiac consult is needed at this time. Follow up echocardiogram ordered. Objective Vital Signs Date Time Temp Pulse Resp B/P (MAP) Pulse Ox O2 Delivery O2 Flow Rate FiO2 01/31/25 12:06 67 18 Nasal Cannula 3.0 01/31/25 12:01 92 32 01/31/25 08:31 97/65 (76) 01/31/25 06:54 97.7 General: Alert, awake, oriented, not in acute distress HEENT: PERRLA, no icterus, pallor, lymphadenopathy, carotid bruit Respiratory system: Bilateral vesicular breath sounds heard, bilateral on inhalation, crackles present all lung regions CVS: S1-S2 heard, no murmurs/rubs/gallop GI: Soft, nontender, no organomegaly, no guarding/rigidity, bowel sounds present Neuro: No focal neurological deficits present Extremities: Bilateral 2+ pitting edema present Skin: Warm and dry Result Diagram: 01/31/25 0348 01/31/25 0348 Coagulation Studies Laboratory Tests Test 01/30/25 19:51 01/31/25 08:15 01/31/25 08:16 Prothrombin Time 10.0 SECONDS (9.0-12.0) INR International Normalized Ratio 1.0 INR Activated Partial Thromboplast Time 29 SECONDS (22-32) APTT (Heparin Protocol) 38 SECONDS (45-60) L Coagulation Comments D-Dimer 0.72 MG/L FEU (0-0.50) H D-Dimer Comment Advance Care Planning Advanced Care plannin - 30 Minutes Assessment Assessment A 59-year-old female with past medical history of COPD, carotid stenosis status post endarterectomy, TIA presented to the ED in view of gradually worsening shortness of breath over the last one week. She presents with a SOB, exertional dyspnea, orthopnea, PND, and lower extremity swelling, suggesting of CHF exacerbation. However, there is no significant proBNP elevation, and CXR shows no pulmonary congestions. Symptoms improved significantly with diuresis; Lasix, supporting volume overload . Chest pain is mild, noncardiac in nature, worsened with deep breathing; no Cardiac consult is needed at this time. Follow up echocardiogram ordered. Plan Plan Acute hypoxemic respiratory failure 2/2 acute COPD exacerbation Maintain oxygen saturation between 90-94%; supplemental O2 via nasal canula if SpO2 <90% Solu-Medrol 125 mg IV bolus given Solu-Medrol 60 Mg IV three times daily Levaquin 500 mg IV daily initiated DuoNeb nebulization every 4 hours as scheduled and every 2 hours as needed Incentive spirometry Acute CHF exacerbation, unknown EF SOB, orthopnea, PND, and lower extremity swelling. Responded well to Lasix. However, CXR is negative for pulmonary vascular congestions. ProBNP modestly elevated. Diuresis; Lasix 40 mg IV twice daily Heart healthy diet, sodium restriction; < 2 g/day We will initiate Keily MT upon stability and EF Echo ordered, please follow Unstable angina, ruled out Likely noncardiac (pleuritic) chest pain Continue telemetry monitoring Evaluation for CVA H/o TIA CTA head is negative for any acute intracranial abnormality Asymptomatic bacteriuria Urinalysis positive for nitrites and leukocyte esterase Follow up with urine culture Diabetes mellitus type 2 A1c: 6.1 Low-dose sliding scale insulin Hyperlipidemia LDL: 170 LDL goal less than 60 Continue pravastatin 20 mg Carotid stenosis s/p endarterectomy Underwent in 2011 Sleep apnea Outpatient follow up Code Status: Full DVT prophylaxis: [facility] Resident Date of Service: Jan 31, 2025 Billing Provider: CECE MADERA MD Common Visit Codes: [id number] INP/OBS CARE(HIGH) ADRIUSZ AYON, RES Jan 31, 2025 13:04 CECE MADERA MD Jan 31, 2025 20:19
[2025-01-31] MEDS: levoFLOXACIN-Levaquin 500mg/D5 100 ML IV SCH (20:01)
[2025-01-31] MEDS: aspirin 81mg, enteric-coated 1 TAB TABLET.DR PO SCH (20:02)
[2025-01-31] MEDS: enoxaparin 40mg/0.4ml syringe SUBCUT SCH (20:03)
[2025-02-01] VITALS (19 sets, daily range): BP systolic 94–100; BP diastolic 49–63; PULSE 62–86; RESP 14–20; TEMP 97.2–98.4; O2SAT 89–97
[2025-02-01 06:19] LABS: MEAN PLATELET VOLUME 8.8 FL (7.4-10.4); RED CELL DISTRIBUTION WIDTH 15.5 % (11.5-14.5)
[2025-02-01 06:25] LABS: CREATININE 1.04 MG/DL (0.40-0.90); TOTAL CARBON DIOXIDE 30.5 MMOL/L (24-32); eCRCL 48 ML/MIN; eGFR 54 ML/MIN
[2025-02-01] MEDS: methylPREDNISolone sod succ/PF 40mg inj. IV SCH (08:00)
[2025-02-01] MEDS: PERFLUTREN PROTEIN-A MICROSPHR (Optison) 0.22 MG/ML 3ML VIAL IV ONE (15:05)
--- NOTE | 2025-02-01 15:05 | PROGRESS NOTE- Residence ---
Progress Note - Resident Providers to CC Resident Creating Document: CASSIDY NG RES ~ Antibiotic Timeout Antibiotic Ordered?: Yes Subjective Patient was seen and examined at bedside. She is still reports shortness of breaths the her chest auscultation is clear. Creatinine slightly trended up from 0.98-1.04, Lasix dose decreased to 40 mg IV daily. WBC was > 18; she had been on Solu-Medrol 60 mg 3 times daily, reduced to 40 mg IV daily Objective Vital Signs Date Time Temp Pulse Resp B/P (MAP) Pulse Ox O2 Delivery O2 Flow Rate FiO2 02/01/25 11:52 68 20 Nasal Cannula 4.0 02/01/25 11:50 95 36 02/01/25 11:00 98.0 100/49 (66) General: Alert, awake, oriented, not in acute distress HEENT: PERRLA, no icterus, pallor, lymphadenopathy, carotid bruit Respiratory system: Mild basilar crackles, no wheezing CVS: S1-S2 heard, no murmurs/rubs/gallop GI: Soft, nontender, no organomegaly, no guarding/rigidity, bowel sounds present Neuro: No focal neurological deficits present Extremities: Bilateral 2+ pitting edema present Skin: Warm and dry Result Diagram: 02/01/25 0550 02/01/25 0550 Coagulation Studies Laboratory Tests Test 01/30/25 19:51 01/31/25 08:16 01/31/25 16:10 Prothrombin Time 10.0 SECONDS (9.0-12.0) INR International Normalized Ratio 1.0 INR Activated Partial Thromboplast Time 29 SECONDS (22-32) D-Dimer 0.72 MG/L FEU (0-0.50) H D-Dimer Comment APTT (Heparin Protocol) 26 SECONDS (45-60) L Coagulation Comments Advance Care Planning Advanced Care plannin - 30 Minutes Assessment Assessment A 59-year-old female with past medical history of COPD, carotid stenosis status post endarterectomy, TIA presented to the ED in view of gradually worsening shortness of breath over the last one week. She presents with a SOB, exertional dyspnea, orthopnea, PND, and lower extremity swelling, suggesting of CHF exacerbation. However, there is no significant proBNP elevation, and CXR shows no pulmonary congestions. Symptoms improved significantly with diuresis; Lasix, supporting volume overload . Chest pain is mild, noncardiac in nature, worsened with deep breathing; no Cardiac consult is needed at this time. Follow up echocardiogram ordered. Plan Plan Acute hypoxemic respiratory failure 2/2 acute COPD exacerbation Maintain oxygen saturation between 90-94%; supplemental O2 via nasal canula if SpO2 <90% Solu-Medrol 125 mg IV bolus given Solu-Medrol 60 Mg IV three times daily Levaquin 500 mg IV daily initiated DuoNeb nebulization every 4 hours as scheduled and every 2 hours as needed Incentive spirometry Acute CHF exacerbation, unknown EF SOB, orthopnea, PND, and lower extremity swelling. Responded well to Lasix. However, CXR is negative for pulmonary vascular congestions. ProBNP modestly elevated. Diuresis; Lasix 40 mg IV twice daily Heart healthy diet, sodium restriction; < 2 g/day We will initiate Keily MT upon stability and EF Echo ordered, please follow January 31, 2025: She was transferred to PCU. She present with a SOB, exertional dyspnea, orthopnea, PND, and lower extremity swelling, suggesting of CHF exacerbation. However, there is no significant proBNP elevation, and CXR shows no pulmonary congestions. Symptoms improved significantly with diuresis; Lasix, supporting volume overload . Chest pain is mild, noncardiac in nature, worsened with deep breathing; no Cardiac consult is needed at this time. Follow up echocardiogram ordered. February 01, 2025: She is still reports shortness of breaths the her chest auscultation is clear. Creatinine slightly trended up from 0.98-1.04, Lasix dose decreased to 40 mg IV daily. WBC was > 18; she had been on Solu-Medrol 60 mg 3 times daily, reduced to 40 mg IV daily. Echo ordered on the 1st day of admission, still pending. Reordered today. Unstable angina, ruled out Likely noncardiac (pleuritic) chest pain Continue telemetry monitoring Evaluation for CVA H/o TIA CTA head is negative for any acute intracranial abnormality Asymptomatic bacteriuria Urinalysis positive for nitrites and leukocyte esterase Follow up with urine culture Diabetes mellitus type 2 A1c: 6.1 Low-dose sliding scale insulin Hyperlipidemia LDL: 170 LDL goal less than 60 Continue pravastatin 20 mg Carotid stenosis s/p endarterectomy Underwent in 2011 Sleep apnea Outpatient follow up Code Status: Full DVT prophylaxis: Jean Cassidy [facility] Internal Medicine Resident Date of Service: Feb 01, 2025 Billing Provider: CECE MADERA MD Common Visit Codes: [id number] INP/OBS CARE(HIGH) CASSIDY NG, RES Feb 01, 2025 15:04 CECE MADERA MD Feb 01, 2025 21:59
[2025-02-02] VITALS (12 sets, daily range): BP systolic 83–107; BP diastolic 54–66; PULSE 59–83; RESP 16–20; TEMP 97.5–97.8; O2SAT 92–94
[2025-02-02 06:06] LABS: CREATININE 0.84 MG/DL (0.40-0.90); TOTAL CARBON DIOXIDE 28.6 MMOL/L (24-32); eCRCL 59 ML/MIN; eGFR 69 ML/MIN
[2025-02-02 06:07] LABS: MEAN PLATELET VOLUME 8.8 FL (7.4-10.4); RED CELL DISTRIBUTION WIDTH 15.7 % (11.5-14.5)
[2025-02-02] MEDS: normal saline 250ml IV soln 250 ML IV ONE (10:29)
[2025-02-02] MEDS ORDERED: PRED10TA23 PO (12:03)
[2025-02-02] MEDS ORDERED: LEVO-65 PO (12:03)
[2025-02-02] MEDS ORDERED: FURO-150 PO (12:03)
[2025-02-02] MEDS ORDERED: LISI2.5T14 PO (12:03)
[2025-02-02] MEDS ORDERED: CARV3.1232 PO (12:03)
[2025-02-02] MEDS ORDERED: ASPI-1071 PO (12:03)
--- NOTE | 2025-02-02 12:12 | CARDIOLOGY REPORT ---
APPROVED REPORT EXAM: Comprehensive 2D, Doppler, and color-flow Echocardiogram. Patient Location: 3[address] Blood Pressure: 87/47 mmHg Heart Rate: 66 bpm Rhythm: Sinus Rhythm Indications Congestive Heart Failure SOB Hx of Corotid Stenosi S/P Endartectomy 2011 Hx of COPD Diabetes Mellitus II Surveillance Sensor Operator: None Previous echo: None 2D Dimensions RVDd 3.3 cm LA Diam4.2 cm RA Minor3.4 cmLVOT Diameter 1.97 (1.8-2.4cm) IVC 11.74 mmCO 5.1 L/min M-Mode Dimensions RVDd 3.05 (2.1-3.2cm) IVSd 1.21 (0.7-1.1cm) LVDd 6.11 (4.0-5.6cm) Aortic Root 3.36 (2.2-3.7cm) PWd 1.09 (0.7-1.1cm) Aortic Cusp Exc 1.72 (1.5-2.0cm) IVSs 1.48 cm MV EPSS 1.4 (<0.5cm) LVDs 4.36 (2.0-3.8cm) FS (%) 30 % PWs 1.36 cm ESV(Teich) 60.7 ml LVEF(%) 55 (>50%) Aortic Valve AoV Peak Wilder. 176.9 cm/s AoV VTI 41.6 cm AO Peak GR. 12.5 mmHg AO Mean GR. 7 mmHg LVOT VTI 28.10 cm LVOT Peak Wilder. 124.9 cm/s NIURKA(VTI)/BSA 2.07 cm2/m2 NIURKA (VTI) 2.07 cm2 Mitral Valve MV E Velocity 87.8 cm/s MV Peak Gr. 7 mmHg MV DECEL TIME 312 ms MV A Velocity 82.2 cm/s MV Mean Gr. 2 mmHg MV PHT 80 ms E/A Ratio 1.1 MVA (PHT) 2.75 cm2 MV ZGxd374.6 cm/sMV VMean66.1 cm/s MVA VTI2.56 cm2MV VTI33.6 cm TDI Medial E' P. V 10.44 cm/s E/Medial E' 8.4 Pulmonary Valve RVOT VTI 28.8 cm Tricuspid Valve TR P. Velocity 160 cm/s RAP ESTIMATE 10 mmHg TR Peak Gr. 10 mmHg RVSP 20 mmHg Pulmonary Vein S1 Velocity 48.1 cm/s D2 Velocity 55.3 cm/s PVa Hkusuqjn66.6 cm/s PVa [id number] msec LEFT VENTRICLE Normal LV size and wall thickness. Apical septum, mid and basal inferoseptal segments appear hypokine tic. Apical and mid anterior segments appear to be hypokinetic. Overall LV systolic function appears mildly reduced. Overall LVEF is 50-55%. RIGHT VENTRICLE Right ventricle is mildly dilated with grossly normal function. Estimated PA systolic pressure is 20 mmHg. ATRIA Left atrium is mildly dilated. The right atrium size is normal. AORTIC VALVE Probable trileaflet AV appears sclerotic without stenosis or insufficiency. MITRAL VALVE Mild MV annular calcification without stenosis. Trace regurgitation. TRICUSPID VALVE TV appears structurally normal with trace regurgitation. PULMONIC VALVE Normal PV without stenosis, physiologic insufficiency. GREAT VESSELS The aortic root is normal in size. IVC is normal in size and collapses greater than 50% with inspirat ion. PERICARDIUM Normal pericardium. No pericardial effusion seen. Other Information Study Quality: Fair Conclusion Overall LVEF is 50-55%. Normal LV size and wall thickness. Apical septum, mid and basal inferoseptal segments appear hypokine tic. Apical and mid anterior segments appear to be hypokinetic. Overall LV systolic function appears mildly reduced. Right ventricle is mildly dilated with grossly normal function. Estimated PA systolic pressure is 20 mmHg. Left atrium is mildly dilated. The right atrium size is normal. Probable trileaflet AV appears sclerotic without stenosis or insufficiency. Mild MV annular calcification without stenosis. Trace regurgitation. TV appears structurally normal with trace regurgitation. Normal PV without stenosis, physiologic insufficiency. Normal pericardium. No pericardial effusion seen.
--- NOTE | 2025-02-02 14:35 | DISCHARGE SUMMARY-Residence ---
Discharge Summary Providers to CC Resident Creating Document: ELEAZAR BABB RES ~ Discharge Summary Admission Diagnosis: Acute CHF exacerbation Hospital Course DATE OF ADMISSION: 01/30/2025 DATE OF DISCHARGE: 02/02/2025 Labs at the time of discharge WBCs 17.0 Hemoglobin 13.9 Sodium 137 Potassium 4.5 Creatinine 0.84 Magnesium 2.7 ProBNP 242 Total cholesterol 271 LDL 189 HDL 54 Echocardiogram Overall LVEF is 50-55%. Normal LV size and wall thickness. Apical septum, mid and basal inferoseptal segments appear hypokinetic. Apical and mid anterior segments appear to be hypokinetic. Overall LV systolic function appears mildly reduced. Right ventricle is mildly dilated with grossly normal function. Estimated PA systolic pressure is 20 mmHg. Left atrium is mildly dilated. The right atrium size is normal. Probable trileaflet AV appears sclerotic without stenosis or insufficiency. Mild MV annular calcification without stenosis. Trace regurgitation. TV appears structurally normal with trace regurgitation. Normal PV without stenosis, physiologic insufficiency. Normal pericardium. No pericardial effusion seen. Head CT No acute intracranial abnormality. Chest CT No acute intrathoracic abnormality. Discharge Diagnosis\Comment: Acute hypoxemic respiratory failure 2/2 acute COPD exacerbation Acute CHF exacerbation, unknown EF Noncardiac chest pain History of TIA Asymptomatic bacteriuria Type 2 diabetes mellitus Hyperlipidemia Sleep apnea Operations\Procedures: None Consultants: None Complications: None Condition on DC: Stable New Medications: Carvedilol (Carvedilol) 3.125 Mg Tablet 1 TAB PO Q12H for 30 Days, #60 TAB 0 Refills Furosemide (Lasix) 20 Mg Tablet 20 MG PO DAILY for 30 Days, #30 TAB Levofloxacin (Levofloxacin) 500 Mg Tablet 1 TAB PO DAILY for 4 Days, #4 TAB Lisinopril (Lisinopril) 2.5 Mg Tablet 1 TAB PO DAILY for 30 Days, #30 TAB 0 Refills Prednisone (Prednisone) 10 Mg Tablet 0 PO DAILY, #42 TAB Take 4 tabs daily x4 days, then 3 daily x4 days 2 daily x4 days 1 daily x4 days 1/2 daily x4 days then STOP Aspirin (Ecotrin*) 81 Mg Tablet.dr 1 TAB PO DAILY for 30 Days, #30 TAB.SR Continued Medications: albuterol inhaler (Pro-Air Inhaler) 8.5 Gm Inhaler 2 PUFFS INH Q4HPRN PRN for wheezing, #18 GM Albuterol Sulfate Nebs* (Proventil Nebs*) 2.5 Mg/0.5 Ml Vial.neb 2.5 MG IH Q6H PRN for SOB or wheezing Cholecalciferol (Vitamin D3) (Vitamin D3) 50 Mcg (2000 Unit) Capsule 1 CAP PO DAILY, CAP 0 Refills Hydrocodone Bit/Acetaminophen (Hydrocodone-Apap 10-325 Tablet) 10mg/325mg Tablet 1 TAB PO TID PRN for pain Lidocaine (Lidoderm) 5 % Adh..patch 1 PATCH TOP DAILY, #30 PATCH 0 Refills may wear up to 12 hours Omeprazole (Omeprazole) 20 Mg Capsule.dr 1 CAP PO DAILY Pravastatin Sodium (Pravastatin Sodium) 20 Mg Tablet 1 TAB PO DAILY for 30 Days, #30 TAB Promethazine HCl (Promethazine HCl) 25 Mg Tablet 1 TAB PO Q6H PRN PRN for nausea/vomiting, TAB Discontinued Medications: Celecoxib* (Celebrex*) 100 Mg Capsule 100 MG PO BID, CAP Discharge Summary: HPI A 59-year-old female with past medical history of COPD, carotid stenosis status post endarterectomy, TIA presented to the ED in view of gradually worsening shortness of breath over the last one week. Patient was able to walk about two blocks until a week ago which worsened to the point of having shortness of breaths at rest. Patient also states she has had worsening of leg swelling within the last five months that improved with Lasix, but got worsened in the last week with left LE worse than the right lower extremity. Patient endorses intermittent chest pain that has been present over a week which is a feeling of elephant sitting on the chest with radiation to the left arm. Patient states the chest pain does not vary with exertion or rest. Patient had associated left upper and lower extremity numbness and tingling with chest pain, dizziness, palpitations, diaphoresis. Patient endorses orthopnea and PND and decreased urine output. Patient usually uses 2 L of oxygen at home. Hospital course Patient was admitted for acute hypoxemic respiratory failure secondary to COPD exacerbation. Was given Solu-Medrol 125 mg in the ER, was on 60 mg b.i.d., trended down to 40 mg daily. Was started on Levaquin IV, received three doses. Also was on DuoNebs q.4 PRN. Also had possible acute CHF exacerbation, mild reduced ejection fraction. Mildly elevated proBNP. Was on Lasix 40 mg IV daily, reduced to 20 mg daily, started on carvedilol 3.125 b.i.d. and lisinopril 5 mg daily. Echo showed ejection fraction of 50-55%, apical septum mid and basal inferoseptal segments hypokinetic. Apical and mid anterior segments hypokinetic. Patient had chest pain at the time of admission, there was a suspicion of unstable angina which is ruled out, the chest pain is likely noncardiac. Patient had history of TIA, CTA head was negative for acute intracranial abnormality. Urine analysis positive for infection but patient does not have any symptoms, asymptomatic bacteriuria Was on low-dose sliding scale insulin for type 2 diabetes mellitus and continued home medication, pravastatin for hyperlipidemia. Patient has improved symptomatically and is at her baseline oxygen levels. At the time of discharge had the following physical examination findings General: Alert, awake, oriented, not in acute distress HEENT: PERRLA, no icterus, pallor, lymphadenopathy, carotid bruit Respiratory system: Mild basilar crackles, no wheezing CVS: S1-S2 heard, no murmurs/rubs/gallop GI: Soft, nontender, no organomegaly, no guarding/rigidity, bowel sounds present Neuro: No focal neurological deficits present Extremities: Bilateral 1+ pitting edema present Skin: Warm and dry Discharge medications Prednisolone 40 mg daily for four days, 30 mg daily for four days, 20 mg daily for four days, 10 mg daily for four days, 5 mg daily for four days. Levaquin 500 mg daily for four days Aspirin 81 mg daily Pravastatin 20 mg daily Lisinopril 2.5 mg daily Carvedilol 3.125 b.i.d. Lasix 20 mg daily Discharge instructions Follow up with PCP in two weeks Follow up with analog circuit designer in two weeks Continue to take levofloxacin 500 mg for four more days Continue to take prednisolone as directed. Continue with the carvedilol 3.125 b.i.d.. Continue lisinopril 2.5 mg daily, hold if SBP< 100. Call 911 or return to ER in case of chest pain, shortness of breaths, lightheadedness. Discharge instructions *Problems/Diagnosis: (1) Heart failure (2) COPD Total Time Spent on D/C: > 30 Minutes Date of Service: Feb 02, 2025 Billing Provider: CECE MADERA MD Common Visit Codes: 11240-BVQ/[id number] DISCH DAY >30min ELEAZAR BABB, RES Feb 02, 2025 14:18 CECE MADERA MD Feb 02, 2025 20:24
== END 2025-02-02 14:15 | disposition home health service (06) | DRG 194 ==
LOC: ER 19:10 → ED HOLD 21:25 → SUR 3N 23:45 → PCU 3S 01-31 10:44
PROVIDERS: ADMIT Internal Medicine; ATTEND Internal Medicine
DX: I50.23 Acute on chronic systolic (congestive) heart failure (principal); J96.01 Acute respiratory failure with hypoxia; J44.1 Chronic obstructive pulmonary disease with (acute) exacerbation; M81.0 Age-related osteoporosis without current pathological fracture; E78.5 Hyperlipidemia, unspecified; G89.29 Other chronic pain; Z20.822 Contact with and (suspected) exposure to COVID-19; K21.9 Gastro-esophageal reflux disease without esophagitis; F17.210 Nicotine dependence, cigarettes, uncomplicated; E11.9 Type 2 diabetes mellitus without complications; Z96.652 Presence of left artificial knee joint; G47.30 Sleep apnea, unspecified; Z88.0 Allergy status to penicillin; Z88.2 Allergy status to sulfonamides; Z88.8 Allergy status to other drugs, medicaments and biological substances; Z82.49 Family history of ischemic heart disease and other diseases of the circulatory system; Z86.73 Personal history of transient ischemic attack (TIA), and cerebral infarction without residual deficits
CPT/HCPCS: 36415; 70450; 71045; 71250; 80048; 80061; 81001; 82948; 83036; 83605; 83735; 83880; 84145; 84484; 85025; 85379; 85610; 85730; 87040; 87081; 87811; 93005; 93306; 94640; 94664; 94668; 94760; 96374; 96375; 97161; 97530; 99285; A4615; G0378; J0696; J1644; J1650; J1815; J1938; J1956; J2919; J7040; J7050

== ENCOUNTER 2025-03-14 21:32 | Emergency (ER) | payer MEDICAID ==
[~2025-03-14] VITALS: Ht 160 cm; Wt 74.5 kg
[~2025-03-14 21:32] MED LIST changes: +ASPI-1071 PO; -CELE-193 PO; +COR3.125T PO; -CYCL-1 PO; +FURO-150 PO; +LISI2.5T14 PO; +PRAV20TA17 PO; -PRAV20TA4 PO; -tamsulosin capsule PO
[2025-03-14 21:56] VITALS: TEMP 98.5
[2025-03-14 22:04] VITALS: BP 10/65; PULSE 79; RESP 16; O2SAT 92
--- NOTE | 2025-03-14 22:11 | Physician Documentation ---
HPI ~ General Chief Complaint: Medication Request Stated Complaint: MED REQUEST Time Seen by MD: 22:04 Primary Medical Doctor: DR MURRAY History of Present Illness HPI Comments Patient is seen today stating that she needs a refill of her lisinopril 2.5 mg stating that her family practice [facility] would not refill it. Patient states she was diagnosed with some degree of congestive heart failure after discharge from hospital admission and was prescribed lisinopril 2.5 mg at that time. Patient states that she does sometimes feel dizzy or lightheaded and states her blood pressure sometimes is quite low below 100 systolic. Patient currently denies any chest pain but states she does have a degree of shortness of breath in his a smoker with many years of smoking significant amounts. She has no other concern or complaint at this time. Medication Reconciliation Allergies: Coded Allergies: Penicillins (Unverified Allergy, Severe, HIVES, THROAT SWELLING, 01/30/25) Sulfa (Sulfonamide Antibiotics) (Unverified Allergy, Intermediate, HIVES,SWELLING, 01/30/25) azithromycin (Verified Allergy, Intermediate, HIVES,SWELLING, 01/30/25) codeine (Unverified Allergy, Intermediate, HIVES,SWELLING, 01/30/25) erythromycin base (Unverified Allergy, Intermediate, HIVES,SWELLING, 01/30/25) Scheduled Aspirin (Ecotrin*), 1 TAB PO DAILY Carvedilol (Carvedilol), 1 TAB PO Q12H Cholecalciferol (Vitamin D3) (Vitamin D3), 1 CAP PO DAILY, (Reported) Furosemide (Lasix), 20 MG PO DAILY Lidocaine (Lidoderm), 1 PATCH TOP DAILY, (Reported) Lisinopril (Lisinopril), 1 TAB PO DAILY Omeprazole (Omeprazole), 1 CAP PO DAILY, (Reported) Pravastatin Sodium (Pravastatin Sodium), 1 TAB PO DAILY, (Reported) Scheduled PRN Albuterol Sulfate Nebs* (Proventil Nebs*), 2.5 MG IH Q6H PRN for SOB or wheezing, (Reported) Hydrocodone Bit/Acetaminophen (Hydrocodone-Apap 10-325 Tablet), 1 TAB PO TID PRN for pain, (Reported) Promethazine HCl (Promethazine HCl), 1 TAB PO Q6H PRN PRN for nausea/vomiting, (Reported) albuterol inhaler (Pro-Air Inhaler), 2 PUFFS INH Q4HPRN PRN for wheezing, (Reported) Past Medical History Past Medical History: High Cholesterol, COPD, GERD, Chronic Back Pain, Osteoporosis, *PSYCH* Past Surgical History: orthopedic surgeries, other Other Past Surgical History: Carotid artery Patient History: FH: heart attack Alcohol Use: None Drug Use: none Lives In: Home Occupation: employed Review of Systems Constitutional: Denies: chills, fever, weakness Eyes: Denies: pain, blurred vision ENT: Denies: ear pain, nose pain, throat pain, mouth pain Respiratory: Denies: cough, shortness of breath Cardiovascular: Denies: chest pain, palpitations Gastrointestinal: Denies: abdominal pain, nausea, vomiting Genitourinary: Denies: burning, dysuria Female Genitalia: Denies: vaginal discharge, pelvic pain Neurological: Denies: headache, dizziness Musculoskeletal: Denies: pain, swelling Integumentary: Denies: rash, lesions Allergic/Immunologic: Denies: hives, itching Hematologic/Lymphatic: Denies: no symptoms reported Psychiatric: Denies: depression, anxiety Physical Exam Physical Exam Vital Signs: Temperature: 98.5, Source: Temporal, Heart Rate: 79, Respiratory Rate: 16, BP: 10/65, Pulse Oximetry: 92, Weight: 74.550 Oxygen Flow Rate: 0 Physical Exam General: Awake and Alert, no acute distress. HEENT: Conjunctiva pink, Sclera clear, Mucus Membranes moist. Neck: Supple without masses and tenderness. Resp: Unlabored. Lungs clear to auscultation bilaterally. Heart: Regular Rate and rhythm, normal S1 and S2 with a systolic ejection murmur, and no rub or gallop. Abdomen: Soft and non tender no organomegaly Extremities: No cyanosis,clubbing or edema. Skin: Warm and Dry. Progress Results/Orders Results/Orders Vital Signs 03/14/25 03/14/25 21:56 22:04 Temp 98.5 Pulse 78 79 Resp 15 16 B/P (MAP) 104/65 10/65 Pulse Ox 98 92 O2 Flow Rate 0 Medical Decision Making Findings Patient is seen today stating that she needs a refill of her lisinopril 2.5 mg stating that her family practice [facility] would not refill it. Patient states she was diagnosed with some degree of congestive heart failure after discharge from hospital admission and was prescribed lisinopril 2.5 mg at that time. Patient states that she does sometimes feel dizzy or lightheaded and states her blood pressure sometimes is quite low below 100 systolic. Patient currently denies any chest pain but states she does have a degree of shortness of breath in his a smoker with many years of smoking significant amounts. She has no other concern or complaint at this time. Patient will not receive a prescription for lisinopril as her blood pressure was rather low in the ED today. Patient will keep appointment with Cardiology coming up in a few weeks and will continue close follow up with her primary. I strongly advised patient discontinue smoking. Patient voiced understanding. Return to ED with any worsening, concerning or changing symptoms. Departure Disposition: HOME / SELF CARE / HOMELESS Impression: Primary Impression: Chronic obstructive pulmonary disease Qualified Codes: J44.9 - Chronic obstructive pulmonary disease, unspecified Additional Impression: Congestive heart failure (CHF) Qualified Codes: I50.9 - Heart failure, unspecified Condition: Stable Discharge Instructions: Medicine Refill at the Emergency Department Additional Instructions: Patient will not receive a prescription for lisinopril as her blood pressure was rather low in the ED today. Patient will keep appointment with Cardiology coming up in a few weeks and will continue close follow up with her primary. I strongly advised patient discontinue smoking. Patient voiced understanding. Return to ED with any worsening, concerning or changing symptoms. Referrals: NO PRIMARY CARE PROVIDER (PCP) Signature Scribe Signature: No scribe Attestation: No scribe ADAN GODFREY PAC Mar 14, 2025 22:11
== END 2025-03-14 22:18 | disposition home or self-care (01) ==
LOC: ER 21:33
DX: I50.9 Heart failure, unspecified (principal); J44.9 Chronic obstructive pulmonary disease, unspecified; Z76.0 Encounter for issue of repeat prescription; K21.9 Gastro-esophageal reflux disease without esophagitis; F17.200 Nicotine dependence, unspecified, uncomplicated; E78.00 Pure hypercholesterolemia, unspecified; Z88.0 Allergy status to penicillin; Z88.2 Allergy status to sulfonamides; Z88.1 Allergy status to other antibiotic agents; Z88.5 Allergy status to narcotic agent; Z79.899 Other long term (current) drug therapy; Z79.82 Long term (current) use of aspirin
CPT/HCPCS: 99281; 99282